=== PATIENT | male | born 1930 | race Caucasian/White ===

== ENCOUNTER → 2017-04-13 | Outpatient (CLI) | payer MEDICARE ==
--- NOTE | 2017-04-13 09:40 | CT ---
EXAMINATION TYPE: CT lumbar spine wo con DATE OF EXAM: 04/13/2017 9:10 AM COMPARISON: NONE HISTORY: Low back pain with radiculopathy of the right lower extremity for 8 months. Patient had a fa ll [address] DLP: 954 mGycm Automated exposure control for dose reduction was used. Unenhanced CT of the lumbar spine was performed. Bone and soft tissue window settings are submitted as well as coronal and sagittal reconstructions. FINDINGS: There is compression deformity of the L2 vertebral body of approximately 30%. Evaluation fo r retropulsion is slightly limited given patient positioning. The mid vertebral body demonstrates inc reased height loss in comparison to the anterior vertebral body. There is no extension into the poste rior elements. There is a slight levoscoliotic curvature of the lumbar spine with a rotatory component. Multilevel m oderate degenerative changes of the lumbar spine are noted is bridging anterior osteophytes, multilev el facet arthropathy, endplate sclerosis and Schmorl's nodes. Multilevel intervertebral disc space na rrowing is also seen. There is grade 1 anterolisthesis of L4 on L5. The remainder of the vertebral jess dies maintain alignment. Punctate left sacral sclerotic lesion likely represents a bone island. Minim al sacroiliac joint sclerosis is also seen. Abdominal aorta is of normal course and caliber intense visualized portions with moderate to severe c alcific atheromatous changes. There is a fluid attenuated poorly delineated right upper pole renal cy st. Paraspinal musculature is unremarkable. L1-L2: There is a broad-based disc bulge and mild facet arthropathy resulting in mild bilateral neura l foraminal narrowing. Spinal canal remains patent. L2-L3: There is a broad-based disc bulge, moderate facet arthropathy, and mild ligamentum flavum moss ling creating mild bilateral neural foraminal narrowing and mild spinal canal stenosis. L3-L4: There is a broad-based disc bulge, moderate facet arthropathy, and mild ligamentum flavum moss ling creating moderate bilateral neural foraminal narrowing and mild spinal canal stenosis. L4-L5: There is disc uncovering secondary to the grade 1 anterolisthesis of L4 with respect to L5 gra de additionally there is moderate to severe facet arthropathy, mild ligamentum flavum buckling and a broad-based disc bulge creating mild to moderate bilateral neural foraminal narrowing. No significant spinal canal stenosis. L5-S1: There is a broad-based disc bulge and moderate to severe facet arthropathy. Neural foramen and spinal canal are patent. IMPRESSION: 1. Age indeterminant compression deformity L2 vertebral body. Given the patient's history of chronic back pain, remote injury, and no provided history of recent trauma this is most likely chronic. MR co uld be performed to evaluate for bone marrow edema if there is corresponding point tenderness. 2. No discrete evidence of focal disc herniation although this is better assessed with MRI. 3. Multilevel degenerative disc disease, moderate in degree, resulting in variable degrees of neural foraminal stenosis as described above. This is most significant at L3-L4 where there is moderate bila teral neural foraminal narrowing. 4. Mild spinal canal stenosis at L2-L4. 5. Grade 1 anterolisthesis of L4 on L5.
== END | disposition home or self-care (01) ==
LOC: RADCTMAIN 08:51
PROVIDERS: ATTEND Physical Medicine & Rehabilitation
DX: M48.062 Spinal stenosis, lumbar region with neurogenic claudication (principal); M99.73 Connective tissue and disc stenosis of intervertebral foramina of lumbar region; M43.16 Spondylolisthesis, lumbar region; M51.36 Other intervertebral disc degeneration, lumbar region; Z95.0 Presence of cardiac pacemaker
CPT/HCPCS: 72131

== ENCOUNTER → 2018-03-22 | Outpatient (CLI) | payer MEDICARE ==
[2018-03-22 20:01] LABS: Anion Gap 7.3 mmol/L (4.00-12.00); Calcium 9.5 mg/dL (8.7-10.3); Carbon Dioxide 30.7 mmol/L (21.6-31.8); LDL Cholesterol,Calculated 62.6 mg/dL (0.0-131.0); Potassium 4.4 mmol/L (3.5-5.5); Total Bilirubin 0.3 mg/dL (0.3-1.2); VLDL Calculation 20.4 mg/dL (5.00-40.00)
== END | disposition home or self-care (01) ==
LOC: LABWHC1 12:24
PROVIDERS: ATTEND Internal Medicine Clinical Cardiac Electrophysiology
DX: I25.10 Atherosclerotic heart disease of native coronary artery without angina pectoris (principal); R00.1 Bradycardia, unspecified; Z95.1 Presence of aortocoronary bypass graft
CPT/HCPCS: 36415; 80053; 80061; 84443

== ENCOUNTER 2018-11-06 08:41 | Day surgery (SDC) | payer MEDICARE ==
[2018-11-04 16:27] VITALS: BMI 23.6
[~2018-11-06 08:41] MED LIST: LACTATED RINGERS 1,000 ML IV SCH; LIDOCAINE 1% 20 ML VIAL (10MG/ML) FOR IV START INTRADERMA PRN
[2018-11-06 09:20] VITALS: RESP 18; TEMP 96.8
[2018-11-06] MEDS ORDERED: LIDOCAINE 1% INJ 10MG/ML (20 ML MDV) ONE (09:47)
[2018-11-06] MEDS ORDERED: PROPOFOL 10 MG/ML 20 ML VIAL IV ONE (09:47)
--- NOTE | 2018-11-06 10:01 | P.PCN ---
Date of Procedure: 11/06/18 Procedure(s) Performed: BRIEF HISTORY: Patient is a 88-year-old, pleasant, male, scheduled for an upper endoscopy as a part of surveillance of Arnold's esophagus. He does have long- standing history of GERD/Arnold's esophagus and has been maintained on lansoprazole 30 mg daily and doing well. Last upper endoscopy was 2 years ago.. PROCEDURE PERFORMED: Esophagogastroduodenoscopy with biopsy. PREOPERATIVE DIAGNOSIS: GERD/Arnold's esophagus. IV sedation per anesthesia. PROCEDURE: After informed consent was obtained, the patient was brought into the endoscopy unit. IV sedation was administered by Anesthesia under continuous monitoring. Initially the Olympus GIF-140 video endoscope was inserted into the mouth. Esophagus intubated without any difficulty. It was gradually advanced into the stomach and duodenum and carefully examined. The bulb and the second part of the duodenum appeared normal. The scope at this time was withdrawn to the stomach, adequately insufflated with air, and upon careful examination, mucosa of the antrum, body, cardia and the fundus appeared normal. The scope was then withdrawn into the esophagus. The GE junction was located at 32 cm from the incisors. Moderate size hiatal hernia noted. They revealed linear tongues of Arnold's appearing mucosa extending from 29-32 cm from the incisors and biopsies were done from this area. The esophagus appeared normal. There were no erosions or ulcerations seen and the patient tolerated the procedure well. IMPRESSION: 1. Arnold's esophagus extending from 28-31 m from the incisors status post multiple biopsies. 2. Moderate size hiatal hernia. RECOMMENDATIONS: The findings of this examination were discussed with the patient as well as his family. He was advised to follow with the biopsy results. He will remain on lansoprazole 30 mg daily and follow antireflux measures..
[2018-11-06 11:10] VITALS: BP 158/74; PULSE 70
== END 2018-11-06 11:35 | disposition home or self-care (01) ==
LOC: ORWHC2ENDO 08:41
PROVIDERS: ATTEND Internal Medicine Gastroenterology
DX: K22.70 Barrett's esophagus without dysplasia (principal); K21.9 Gastro-esophageal reflux disease without esophagitis; K44.9 Diaphragmatic hernia without obstruction or gangrene; Z88.1 Allergy status to other antibiotic agents; Z88.8 Allergy status to other drugs, medicaments and biological substances; Z95.1 Presence of aortocoronary bypass graft; I25.10 Atherosclerotic heart disease of native coronary artery without angina pectoris; I10 Essential (primary) hypertension; E78.5 Hyperlipidemia, unspecified; Z95.0 Presence of cardiac pacemaker
CPT/HCPCS: 43239; J2001; J2704; 88305

== ENCOUNTER → 2019-05-31 | Outpatient (CLI) | payer MEDICARE ==
--- NOTE | 2019-05-31 16:45 | CT ---
EXAMINATION TYPE: CT brain wo con DATE OF EXAM: 05/31/2019 COMPARISON: None HISTORY: Unsteady gait CT DLP: 1147.[address] of the brain was performed. The ventricles, basal cisterns and sulci overlying the cerebral convexities demonstrate moderate enla rgement. There is no evidence for intracranial hemorrhage or sulcal effacement. There is decreased attenuation about the periventricular white matter and deep white matter of both c erebral hemispheres, compatible with chronic small vessel ischemia. Differential diagnosis does inclu de demyelination. No mass effects are seen.No midline shift. Osseous calvarium is intact. If symptoms persist consider MRI. IMPRESSION: 1. Age related atrophic and chronic small vessel ischemic change without acute intracranial process s een at this time.
--- NOTE | 2019-06-02 14:35 | CT ---
EXAMINATION TYPE: CT lumbar spine wo con DATE OF EXAM: 06/02/2019 COMPARISON: 04/13/2017 HISTORY: Collapsed vertebra CT DLP: 891.[address] of the lumbar spine was performed. Bone and soft tissue window settings are submitted as well as coronal and sagittal reconstructions. L1-L2: Again noted is remote compression fracture of L2 unchanged in overall morphology. Note that no evidence for interval progression. Moderate degenerative disc space narrowing at L1-2 with the poste rior disc bulge and mild effacement of the ventral thecal sac. Ventral spondylosis identified. L2-L3: There is grade 1 retrolisthesis of L2 on L3 measuring 3 mm. Mild degenerative disc space narro wing with posterior disc bulge and partial encapsulating spur resulting in disc endplate complex. Mil d effacement ventral thecal sac without central stenosis. No evidence for foraminal encroachment. L3-L4: Grade 1 retrolisthesis of L3 on L4 measuring 2 mm. Vacuum disc changes noted. Posterior disc b ulge with hypertrophy of the ligamentum flavum resulting in central stenosis and bilateral foraminal encroachment. L4-L5: Moderate degenerative disc space narrowing. 6 mm anterolisthesis L4 and L5 related to severe d egenerative change of the facet joints. There is moderate central stenosis at this level. L5-S1: Vacuum disc changes noted. Broad-based posterior disc bulge without herniation or central sten osis. Foramina are patent bilaterally. No paraspinal masses are identified. Lumbar segments are free if fracture. IMPRESSION: 1. Stable chronic compression deformity of L2. 2. Multilevel degenerative disc disease with varying degrees of spondylolisthesis. Central stenosis a s outlined above.
== END | disposition home or self-care (01) ==
LOC: RADCTMAIN 13:51
PROVIDERS: ATTEND Family Medicine
DX: G31.1 Senile degeneration of brain, not elsewhere classified (principal); I67.82 Cerebral ischemia; M48.061 Spinal stenosis, lumbar region without neurogenic claudication; M51.36 Other intervertebral disc degeneration, lumbar region; M43.16 Spondylolisthesis, lumbar region; M43.8X6 Other specified deforming dorsopathies, lumbar region
CPT/HCPCS: 70450; 72131

== ENCOUNTER → 2019-06-05 | Outpatient (CLI) | payer MEDICARE ==
--- NOTE | 2019-06-05 14:51 | US ---
EXAMINATION TYPE: US venous doppler duplex LE BI DATE OF EXAM: 06/05/2019 2:38 PM COMPARISON: NONE CLINICAL HISTORY: 88-year-old male M79.605 pain left leg. Right leg swelling and pain. On aspirin. No hx DVT. SIDE PERFORMED: Bilateral TECHNIQUE: The lower extremity deep venous system is examined utilizing real time linear array sonog jose rafael with graded compression, doppler sonography and color-flow sonography. FINDINGS: VESSELS IMAGED: External Iliac Vein (EIV) Common Femoral Vein Deep Femoral Vein Greater Saphenous Vein * Femoral Vein Popliteal Vein Small Saphenous Vein * Proximal Calf Veins (* superficial vessels) Right Leg: Appears negative for DVT. Limited visualization of femoral vein due to plaque shadowing and small vessel size. Left Leg: Negative for DVT IMPRESSION: 1. On the right, there is limited visualization of the femoral vein due to shadowing from plaque and diminutive vessel size. Otherwise, no DVT visualized on the right. 2. No evidence for DVT within the left lower extremity imaged from the groin to the upper calf.
[2019-06-05 16:35] LABS: C Reactive Protein <5.0 mg/L (<10.0)
[2019-06-06 01:08] LABS: Hemoglobin A1C 5.8 % (4.0-6.0)
== END | disposition home or self-care (01) ==
LOC: RADUSWWP 14:02
PROVIDERS: ATTEND Psychiatry & Neurology Neurology
DX: R93.6 Abnormal findings on diagnostic imaging of limbs (principal); M79.605 Pain in left leg; M79.604 Pain in right leg; G62.9 Polyneuropathy, unspecified; Z86.73 Personal history of transient ischemic attack (TIA), and cerebral infarction without residual deficits
CPT/HCPCS: 36415; 82306; 82607; 83036; 85652; 86140; 93970

== ENCOUNTER → 2019-09-23 | Outpatient (CLI) | payer MEDICARE ==
--- NOTE | 2019-09-23 15:04 | US ---
EXAMINATION TYPE: US venous doppler duplex LE RT DATE OF EXAM: 09/23/2019 2:50 PM COMPARISON: NONE CLINICAL HISTORY: R22.41 Swelling of lower Leg Right. SIDE PERFORMED: Right TECHNIQUE: The lower extremity deep venous system is examined utilizing real time linear array sonog jose rafael with graded compression, doppler sonography and color-flow sonography. VESSELS IMAGED: External Iliac Vein (EIV) Common Femoral Vein Deep Femoral Vein Greater Saphenous Vein * Femoral Vein Popliteal Vein Small Saphenous Vein * Proximal Calf Veins (* superficial vessels) Grayscale, color doppler, spectral doppler imaging performed of the deep veins of the right lower ext remity. There is normal flow, compressibility, vascular waveforms. Right Leg: Negative for DVT IMPRESSION: No sonographic evidence of deep venous thrombosis within the right lower extremity.
[2019-09-23 15:31] LABS: HCT 40.1 % (39.0-53.0); HGB 12.7 gm/dL (13.0-17.5); MCH 31.1 pg (25.0-35.0); MCHC 31.6 g/dL (31.0-37.0); MCV 98.5 fL (80.0-100.0); Platelet Count 218 k/uL (150-450); RBC 4.07 m/uL (4.30-5.90); WBC 8.1 k/uL (3.8-10.6)
--- NOTE | 2019-09-23 15:45 | XR ---
EXAMINATION TYPE: XR tibia fibula RT DATE OF EXAM: 09/23/2019 COMPARISON: NONE HISTORY: Pain and swelling TECHNIQUE: Two views are submitted. FINDINGS: The osseous structures are intact. The joint spaces are preserved. Soft tissue edema noted. Vascula r calcifications are seen. IMPRESSION: 1. No acute osseous abnormality.
[2019-09-23 16:03] LABS: Eosinophils # (M) 0.41 k/uL (0-0.7); Monocytes # (M) 0.81 k/uL (0-1.0); Neutrophils # (M) 5.59 k/uL (1.3-7.7); Neutrophils % (M) 69 %; Nucleated Red Blood Cells 0 /100 WBC (0-0); Total Cells Counted 100
[2019-09-23 16:53] LABS: Albumin 3.9 g/dL (3.5-5.0); Calcium 9.6 mg/dL (8.4-10.2); Potassium 4.6 mmol/L (3.5-5.1); Total Bilirubin 0.4 mg/dL (0.2-1.3); Total Protein 6.8 g/dL (6.3-8.2)
== END | disposition home or self-care (01) ==
LOC: RADUSWWP 14:19
PROVIDERS: ATTEND Family Medicine
DX: R22.41 Localized swelling, mass and lump, right lower limb (principal)
CPT/HCPCS: 36415; 80053; 85025

== ENCOUNTER 2019-10-04 15:33 | Inpatient (IN) | payer MEDICARE ==
[2019-10-04] MEDS ORDERED: ASPIRIN 81 MG PO STA (15:56)
--- NOTE | 2019-10-04 16:01 | ED ---
General Adult HPI - General Chief complaint: Chest Pain Stated complaint: Chest pain/SOB Time Seen by Provider: 10/04/19 15:47 Source: patient Mode of arrival: wheelchair Limitations: no limitations - History of Present Illness Initial comments: Dictation was produced using [employer] dictation software. please excuse any grammatical, word or spelling errors. This patient was cared for during a federal and state declared state of emergency secondary to Covid 19 Chief Complaint: 89-year-old male past medical history of triple bypass surgery, coronary artery disease presents with exertional chest pain or shortness of breath. History of Present Illness: Patient is a 9-year-old male he is accompanied by his family member. Patient has been having exertional shortness of breath has been getting worse for the last 2 weeks. 2 weeks ago patient was having exertional chest pain shortness of breath after walking. Today he does want to the bathroom when he felt chest pain and shortness of breath. He was supposed to follow-up on Sunday however considering the Q Mary symptoms he decided come to the emergency department. Patient denies any symptoms while at rest. He states that his chest pain is worse only with exertion. He says it feels like substernal chest pressure. Patient's CABG was from 1985. Patient has chronic right lower extremity swelling. He's been evaluated for DVT on multiple occasions since May of this year. He has had multiple negative anus ultrasound duplex scan of the right lower extremity. The ROS documented in this emergency department record has been reviewed and confirmed by me. Those systems with pertinent positive or negative responses have been documented in the HPI. All other systems are other negative and/or noncontributory. PHYSICAL EXAM: General Impression: Alert and oriented x3, not in acute distress HEENT: Normocephalic atraumatic, extra-ocular movements intact, pupils equal and reactive to light bilaterally, mucous membranes moist. Cardiovascular: Heart regular rate and rhythm Chest: Able to complete full sentences, no retractions, no tachypnea, mild crackles to the right lung base Abdomen: abdomen soft, non-tender, non-distended, no organomegaly Musculoskeletal: Pulses present and equal in all extremities, no peripheral edema Motor: no focal deficits noted Neurological: CN II-XII grossly intact, no focal motor or sensory deficits noted Skin: Intact with no visualized rashes Psych: Normal affect and mood ED course: 89-year-old male presents with exertional chest pain shortness of breath. Signs upon arrival are within acceptable limits. Patient's well- appearing at bedside. EKG does not show any signs of ischemia or infarction. Patient's history of present illness is concerning for unstable angina.Laboratory evaluation obtained. CBC unremarkable. Coag panel is negative. Metabolic panel shows elevated BUN. Troponin is elevated at 0.047. Chest x-ray shows no acute processes. Considering elevated troponin and history of present illness there is concern that patient's clinical presentation is consistent with unstable angina. Patient started on heparin. He was given 324 of aspirin. Upon reevaluation patient is pain-free. Patient be admitted for serial troponins, cardiology consultation. EKG interpretation: Ventricular rate 71, sinus rhythm,. Interval to 20, QRS 78, QTC 419. No [place] prolongation, no QTC prolongation, no ST or T-wave changes noted. No old EKG for comparison. Overall, this EKG is unremarkable - Related Data Home Medications Medication Instructions Recorded Confirmed Atorvastatin [Lipitor] 20 mg PO HS 03/03/14 11/04/18 Lansoprazole [Prevacid] 30 mg PO DAILY 03/03/14 11/04/18 [place]-3 Acid Ethyl Esters [Lovaza] 1 gm PO BID 03/03/14 11/04/18 Valsartan/Hydrochlorothiazide 1 tab PO DAILY 03/03/14 11/04/18 [Valsartan-Hctz 80-12.5 mg Tab] Calcium Polycarbophil [Fibercon] 625 mg PO DAILY 03/05/14 11/04/18 Garlic 1,500 mg PO DAILY 03/05/14 11/04/18 Multivitamin [Men's Multi-Vitamin] 1 each PO DAILY 03/05/14 11/04/18 Aspirin 81 mg PO DAILY 10/28/14 11/04/18 Naproxen [Naprosyn] 500 mg PO Q12HR PRN 11/04/18 11/04/18 Allergies Allergy/AdvReac Type Severity Reaction Status Date / Time meperidine HCl [From Demerol] Allergy Severe Nausea Verified 10/04/19 15:42 neomycin [Neomycin] Allergy Rash/Hives Verified 10/04/19 15:42 amoxicillin [Amoxicillin] AdvReac Severe Nausea Verified 10/04/19 15:42 ,ABDOMINAL PAIN clarithromycin [From Biaxin] AdvReac Severe Nausea Verified 10/04/19 15:42 Review of Systems ROS Statement: Those systems with pertinent positive or pertinent negative responses have been documented in the HPI. ROS Other: All systems not noted in ROS Statement are negative. Past Medical History Past Medical History: GERD/Reflux, Hyperlipidemia, Hypertension Additional Past Medical History / Comment(s): hx. Arnold's esophagus History of Any Multi-Drug Resistant Organisms: None Reported Past Surgical History: Coronary Bypass/CABG, Heart Catheterization, Hernia Repair, Pacemaker Additional Past Surgical History / Comment(s): CABG-triple bypass 30 yrs. ago Past Anesthesia/Blood Transfusion Reactions: No Reported Reaction Type of Cardiac Device: Permanent Pacemaker Device Placement Date:: 2014 Past Psychological History: No Psychological Hx Reported Smoking Status: Never smoker Past Alcohol Use History: None Reported Past Drug Use History: None Reported - Past Family History Mother Family Medical History: No Reported History General Exam Limitations: no limitations Course Vital Signs 10/04/19 15:42 Temperature 98.6 F Pulse Rate 68 Respiratory 18 Rate Blood Pressure 122/59 O2 Sat by Pulse 95 Oximetry Medical Decision Making - Lab Data Result diagrams: 10/04/19 16:11 10/04/19 16:11 Lab Results 10/04/19 10/04/19 10/04/19 Range/Units 16:11 16:11 16:11 WBC 8.1 (3.8-10.6) k/uL RBC 3.97 L (4.30-5.90) m/uL Hgb 12.9 L (13.0-17.5) gm/dL Hct 38.8 L (39.0-53.0) % MCV 97.6 (80.0-100.0) fL MCH 32.5 (25.0-35.0) pg MCHC 33.3 (31.0-37.0) g/dL RDW 12.9 (11.5-15.5) % Plt Count 225 (150-450) k/uL Neutrophils % 56 % Lymphocytes % 19 % Monocytes % 13 % Eosinophils % 7 % Basophils % 1 % Neutrophils # 4.5 (1.3-7.7) k/uL Lymphocytes # 1.6 (1.0-4.8) k/uL Monocytes # 1.1 H (0-1.0) k/uL Eosinophils # 0.6 (0-0.7) k/uL Basophils # 0.1 (0-0.2) k/uL PT 10.7 (9.0-12.0) sec INR 1.0 (<1.2) APTT 22.3 (22.0-30.0) sec Sodium 133 L (137-145) mmol/L Potassium 5.2 H (3.5-5.1) mmol/L Chloride 100 (98-107) mmol/L Carbon Dioxide 25 (22-30) mmol/L Anion Gap 8 mmol/L BUN 29 H (9-20) mg/dL Creatinine 1.02 (0.66-1.25) mg/dL Est GFR (CKD-EPI)AfAm 75 (>60 ml/min/1.73 sqM) Est GFR (CKD-EPI)NonAf 65 (>60 ml/min/1.73 sqM) Glucose 118 H (74-99) mg/dL Calcium 9.3 (8.4-10.2) mg/dL Magnesium 1.7 (1.6-2.3) mg/dL Total Bilirubin 0.5 (0.2-1.3) mg/dL AST 42 (17-59) U/L ALT 26 (4-49) U/L Alkaline Phosphatase 73 (38-126) U/L Troponin I (0.000-0.034) ng/mL NT-Pro-B Natriuret Pep pg/mL Total Protein 6.8 (6.3-8.2) g/dL Albumin 3.7 (3.5-5.0) g/dL 10/04/19 10/04/19 Range/Units 16:11 16:11 WBC (3.8-10.6) k/uL RBC (4.30-5.90) m/uL Hgb (13.0-17.5) gm/dL Hct (39.0-53.0) % MCV (80.0-100.0) fL MCH (25.0-35.0) pg MCHC (31.0-37.0) g/dL RDW (11.5-15.5) % Plt Count (150-450) k/uL Neutrophils % % Lymphocytes % % Monocytes % % Eosinophils % % Basophils % % Neutrophils # (1.3-7.7) k/uL Lymphocytes # (1.0-4.8) k/uL Monocytes # (0-1.0) k/uL Eosinophils # (0-0.7) k/uL Basophils # (0-0.2) k/uL PT (9.0-12.0) sec INR (<1.2) APTT (22.0-30.0) sec Sodium (137-145) mmol/L Potassium (3.5-5.1) mmol/L Chloride (98-107) mmol/L Carbon Dioxide (22-30) mmol/L Anion Gap mmol/L BUN (9-20) mg/dL Creatinine (0.66-1.25) mg/dL Est GFR (CKD-EPI)AfAm (>60 ml/min/1.73 sqM) Est GFR (CKD-EPI)NonAf (>60 ml/min/1.73 sqM) Glucose (74-99) mg/dL Calcium (8.4-10.2) mg/dL Magnesium (1.6-2.3) mg/dL Total Bilirubin (0.2-1.3) mg/dL AST (17-59) U/L ALT (4-49) U/L Alkaline Phosphatase (38-126) U/L Troponin I 0.047 H* (0.000-0.034) ng/mL NT-Pro-B Natriuret Pep 461 pg/mL Total Protein (6.3-8.2) g/dL Albumin (3.5-5.0) g/dL Critical Care Time Critical Care Time: Yes Total Critical Care Time: 33 Disposition Clinical Impression: NSTEMI (non-ST elevated myocardial infarction) Disposition: ADMITTED IP TO THIS HOSP Condition: Fair Referrals: Misael Foster DO [Primary Care Provider] - 1-2 days Decision Time: 17:28
--- NOTE | 2019-10-04 16:31 | XR ---
EXAMINATION TYPE: XR chest 2V DATE OF EXAM: 10/04/2019 COMPARISON: 11/05/2014 HISTORY: 89-year-old male with chest pain TECHNIQUE: PA and lateral views FINDINGS: The heart is normal size. Aorta only vasculature within normal limits. Stable calcified granuloma at the left hilum. Mild interstitial prominence is unchanged. No consolidation or pleural effusion. Left anterior chest wall pacemaker generator with right atrial and right ventricular leads. Median sterno van wires and post-CABG clips. IMPRESSION: Post-CABG changes. Left-sided pacemaker generator. Chronic appearing parenchymal changes as well as o ld granulomatous disease. No definite acute process.
[2019-10-04 16:33] LABS: Partial Thromboplastin Time 22.3 sec (22.0-30.0); Prothrombin Time 10.7 sec (9.0-12.0)
[2019-10-04 16:34] LABS: Albumin 3.7 g/dL (3.5-5.0); Calcium 9.3 mg/dL (8.4-10.2); Magnesium 1.7 mg/dL (1.6-2.3); Total Bilirubin 0.5 mg/dL (0.2-1.3); Total Protein 6.8 g/dL (6.3-8.2)
[2019-10-04 16:46] LABS: Potassium 5.2 mmol/L (3.5-5.1)
[2019-10-04 16:48] LABS: Basophils # (A) 0.1 k/uL (0-0.2); Basophils % (A) 1 %; Eosinophils # (A) 0.6 k/uL (0-0.7); Eosinophils % (A) 7 %; HCT 38.8 % (39.0-53.0); HGB 12.9 gm/dL (13.0-17.5); Lymphocytes # (A) 1.6 k/uL (1.0-4.8); Lymphocytes % (A) 19 %; MCH 32.5 pg (25.0-35.0); MCHC 33.3 g/dL (31.0-37.0); MCV 97.6 fL (80.0-100.0); Monocytes # (A) 1.1 k/uL (0-1.0); Monocytes % (A) 13 %; Neutrophils # (A) 4.5 k/uL (1.3-7.7); Neutrophils % (A) 56 %; Platelet Count 225 k/uL (150-450); RBC 3.97 m/uL (4.30-5.90); RDW 12.9 % (11.5-15.5); WBC 8.1 k/uL (3.8-10.6)
[2019-10-04] MEDS ORDERED: HEPARIN SODIUM,PORCINE 5,000 UNIT/ML 1 ML VIAL IV ONE (17:26)
[2019-10-04] MEDS ORDERED: HEPARIN SODIUM,PORCINE 5,000 UNIT/ML 1 ML VIAL IV PRN (17:26)
[2019-10-04] MEDS ORDERED: NITROGLYCERIN SL TABS 0.4 MG TAB SUBLINGUAL PRN (17:28)
[2019-10-04] MEDS: HEPARIN SOD,PORK IN 0.45% NACL 25,000 UNIT in 0.45% NACL 1 250ML.BAG IV SCH (18:07)
[2019-10-04] MEDS ORDERED: HYDROcodone/APAP 5-325MG 1 EACH TAB PO PRN (20:55)
[2019-10-05 06:29] LABS: Cholesterol 100 mg/dL (<200); HDL Cholesterol 40 mg/dL (40-60); LDL Cholesterol,Calculated 49 mg/dL (0-99); Triglycerides 55 mg/dL (<150)
--- NOTE | 2019-10-05 08:01 | P.CRDCN ---
History of Present Illness Consult date: 10/05/19 Consult reason: non-Q-wave [place] Chief complaint: exertional chest pain History of present illness: History of present illness: This is an 89-year-old male patient of Dr. Fernandez in with past medical history of coronary artery disease status post three-vessel CABG in 1985 at [facility], pacemaker placement in 2014, hypertension, hyperlipidemia, gastroesophageal reflux disease, Arnold's esophagus. Patient states that he has had exertional chest pain shortness of breath isn't going on for a couple weeks. It is an aching type with shortness of breath. He has a faint feeling in bilateral arms. He states he is really walks around the block and developed achiness and when he gets home and takes about 5 minutes for this to resolve. He does not have any nitroglycerin at home to take. He had set up an appointment Dr. Fernandez in for October 09 and was trying to wait until that date. Family is currently in town due to his birthday and for Father's Day and they have requested him come into the hospital for further evaluation. Patient is also had right lower extremity edema and negative for DVT on ultrasounds obtained in May and early September as outpatient. Hemoglobin 12.9, WBC normal. Sodium 133, potassium 5.2, chloride 100, CO2 25, BUN 29, creatinine 1.02, blood sugar 118. Troponins then 0.047, 0.070, 0.074. Triglycerides 55, cholesterol 100, LDL 49, HDL 40. EKG is a sinus rhythm with a first-degree block with PACs, no acute ST changes. 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 No acute process. The patient was started on heparin drip. Discussed option with patient of undergoing heart catheterization or medical management. At this time patient is agreeable to ride a medical management, increase activity and reassess tomorrow for possible heart catheterization. Review Of Systems: Constitutional: No fever, no chills. No weakness, fatigue or lethargy. EENT: No headache. No blurred vision or double vision, no loss of vision. No dizziness. Lungs: No shortness of breath, cough, no sputum production. No wheezing. Cardiovascular: Reports chest pain, right lower extremity edema. No palpitations. No paroxysmal nocturnal dyspnea. No orthopnea. No lightheadedness or dizziness. No syncopal episodes. Reports extensional shortness of breath. Abdominal: No abdominal pain. No nausea, vomiting. No diarrhea. No constipation. No bloody or tarry stools. No loss of appetite. Genitourinary: No dysuria, increased frequency, urgency. No urinary retention. Musculoskeletal: No myalgias. No muscle weakness, no gait dysfunction, no frequent falls. Integumentary: No wounds, no lesions. No rash or pruritus. Neurologic: No aphasia. No facial droop. No change in mentation. No head injury. No headache. No paralysis. No paresthesia. Psychiatric: No depression. No anxiety. No mood swings. Endocrine: 1 elevated blood sugar. Physical examination: Gen: This is an 89-year-old male. Patient is sitting up in bed eating breakfast and appears to be in no acute distress. VS: Blood pressure 105/50, heart rate in the 50s, pulse ox 99% on 2 L nasal cannula, afebrile HEENT: Head is atraumatic, normocephalic. Pupils equal, round. Sclerae is ani cteric. NECK: Supple. No JVD. No lymphadenopathy. No thyromegaly. LUNGS: Clear to auscultation. No wheezes or rhonchi. No intercostal retractions. HEART: Regular rate and rhythm. No murmur. ABDOMEN: Soft. Bowel sounds are present. No masses. No tenderness. EXTREMITIES: No pedal edema. No calf tenderness. NEUROLOGICAL: Patient is awake, alert and oriented x3. Cranial nerves 2 through 12 are grossly intact. 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 Hypertension Hyperlipidemia Gastroesophageal reflux disease and Arnold's esophagus Plan: Resume Toprol-XL 25 mg at supper Resume Lipitor 20 mg daily, continue aspirin 325 mg daily Continue heparin drip Add Imdur 15 mg daily, hold hydrochlorothiazide Obtain 2-D echocardiogram and Doppler study to assess cardiac structure and function Increase activity and monitor chest pain Possible heart catheterization depending on patient's symptoms Further recommendations to follow based upon clinical course Thank you kindly for this consultation Nurse practitioner note has been reviewed, I agree with documented findings and plan of care. Patient was seen and examined. Past Medical History Past Medical History: GERD/Reflux, Hyperlipidemia, Hypertension Additional Past Medical History / Comment(s): hx. Arnold's esophagus History of Any Multi-Drug Resistant Organisms: None Reported Past Surgical History: Coronary Bypass/CABG, Heart Catheterization, Hernia Repair, Pacemaker Additional Past Surgical History / Comment(s): CABG-triple bypass 30 yrs. ago Past Anesthesia/Blood Transfusion Reactions: No Reported Reaction Type of Cardiac Device: Permanent Pacemaker Device Placement Date:: 2014 Past Psychological History: No Psychological Hx Reported Smoking Status: Never smoker Past Alcohol Use History: None Reported Past Drug Use History: None Reported - Past Family History Mother Family Medical History: No Reported History Medications and Allergies Home Medications Medication Instructions Recorded Confirmed Type Atorvastatin [Lipitor] 20 mg PO W/SUPPER 03/03/14 10/04/19 History Lansoprazole [Prevacid] 30 mg PO W/BRKFST 03/03/14 10/04/19 History [place]-3 Acid Ethyl Esters [Lovaza] 1 gm PO BID-W/MEALS 03/03/14 10/04/19 History Valsartan/Hydrochlorothiazide 1 tab PO W/BRKFST 03/03/14 10/04/19 History [Valsartan-Hctz 80-12.5 mg Tab] Calcium Polycarbophil [Fibercon] 625 mg PO W/BRKFST 03/05/14 10/04/19 History Garlic 1,500 mg PO W/BRKFST 03/05/14 10/04/19 History Multivitamin [Men's Multi-Vitamin] 1 tab PO W/BRKFST 03/05/14 10/04/19 History Naproxen [Naprosyn] 500 mg PO BID-W/MEALS PRN 11/04/18 10/04/19 History Aspirin 325 mg PO W/BRKFST 10/04/19 10/04/19 History Cholecalciferol [Vitamin D3 (25 2,000 unit PO W/SUPPER 10/04/19 10/04/19 History Mcg = 1000 Iu)] Metoprolol Succinate [Toprol XL] 25 mg PO W/SUPPER 10/04/19 10/04/19 History Allergies Allergy/AdvReac Type Severity Reaction Status Date / Time meperidine HCl [From Demerol] Allergy Severe Nausea Verified 10/04/19 21:01 neomycin [Neomycin] Allergy Rash/Hives Verified 10/04/19 21:01 amoxicillin [Amoxicillin] AdvReac Severe Nausea Verified 10/04/19 21:01 ,ABDOMINAL PAIN clarithromycin [From Biaxin] AdvReac Severe Nausea Verified 10/04/19 21:01 Physical Exam Vitals: Vital Signs Temp Pulse Pulse Resp BP BP Pulse Ox 10/05/19 04:00 97.5 F L 51 L 18 105/50 99 10/05/19 00:00 97.7 F 53 L 17 103/61 98 10/04/19 20:00 97.8 F 58 L 17 140/77 100 10/04/19 18:38 69 18 137/71 98 10/04/19 17:56 97.8 F 58 L 17 140/77 100 10/04/19 17:45 69 18 137/71 98 10/04/19 16:45 18 10/04/19 15:45 18 10/04/19 15:42 98.6 F 68 18 122/59 95 Intake and Output 10/04/19 10/05/19 10/05/19 22:59 06:59 14:59 Intake Total 69.886 Output Total 425 Balance -355.114 Intake: Intake, IV Titration 69.886 Amount Heparin Sod,Pork in 0.45% 69.886 NaCl 25,000 unit In 0.45 % NaCl 1 250ml.bag @ 12 UNITS/KG/HR 8.437 mls/hr IV .Q24H [facility] Rx#: [id number] Output: Urine 425 Other: Weight 70.307 kg 71.5 kg Results 10/04/19 16:11 10/04/19 16:11 Cardiac Enzymes 10/04/19 10/04/19 10/04/19 Range/Units 16:11 16:11 22:12 AST 42 (17-59) U/L Troponin I 0.047 H* 0.070 H* (0.000-0.034) ng/mL 10/05/19 Range/Units 05:44 AST (17-59) U/L Troponin I 0.074 H* (0.000-0.034) ng/mL Coagulation 10/04/19 10/05/19 Range/Units 16:11 01:49 PT 10.7 (9.0-12.0) sec APTT 22.3 66.2 H (22.0-30.0) sec Lipids 10/05/19 Range/Units 05:44 Triglycerides 55 (<150) mg/dL Cholesterol 100 (<200) mg/dL HDL Cholesterol 40 (40-60) mg/dL CBC 10/04/19 Range/Units 16:11 WBC 8.1 (3.8-10.6) k/uL RBC 3.97 L (4.30-5.90) m/uL Hgb 12.9 L (13.0-17.5) gm/dL Hct 38.8 L (39.0-53.0) % Plt Count 225 (150-450) k/uL Comprehensive Metabolic Panel 10/04/19 Range/Units 16:11 Sodium 133 L (137-145) mmol/L Potassium 5.2 H (3.5-5.1) mmol/L Chloride 100 (98-107) mmol/L Carbon Dioxide 25 (22-30) mmol/L BUN 29 H (9-20) mg/dL Creatinine 1.02 (0.66-1.25) mg/dL Glucose 118 H (74-99) mg/dL Calcium 9.3 (8.4-10.2) mg/dL AST 42 (17-59) U/L ALT 26 (4-49) U/L Alkaline Phosphatase 73 (38-126) U/L Total Protein 6.8 (6.3-8.2) g/dL Albumin 3.7 (3.5-5.0) g/dL Current Medications Generic Name Dose Route Start Last Admin Trade Name Freq PRN Reason Stop Dose Admin Hydrocodone Bitart/Acetaminophen 1 each 10/04/19 20:55 10/04/19 21:21 [place] 5-325 PO 1 each Q6HR PRN Administration Moderate Pain Aspirin 325 mg 10/05/19 09:00 Aspirin PO DAILY MOMO Heparin Sodium (Porcine) 0 unit 10/04/19 17:26 Heparin IV PER PROTOCOL PRN Low PTT Protocol Heparin Sodium/Sodium Chloride 250 mls @ 8.437 mls/hr 10/04/19 17:30 10/05/19 02:24 25,000 unit/ Sodium Chloride IV 10 units/kg/hr .Q24H MOMO 7.031 mls/hr Titration Protocol 12 UNITS/KG/HR Nitroglycerin 0.4 mg 10/04/19 17:28 Nitrostat SUBLINGUAL Q5M PRN Chest Pain Intake and Output 10/04/19 10/05/19 10/05/19 22:59 06:59 14:59 Intake Total 69.886 Output Total 425 Balance -355.114 Intake: Intake, IV Titration 69.886 Amount Heparin Sod,Pork in 0.45% 69.886 NaCl 25,000 unit In 0.45 % NaCl 1 250ml.bag @ 12 UNITS/KG/HR 8.437 mls/hr IV .Q24H [facility] Rx#: [id number] Output: Urine 425 Other: Weight 70.307 kg 71.5 kg 10/04/19 16:11 10/04/19 16:11
[2019-10-05] MEDS ORDERED: HYDROCHLOROTHIAZIDE 12.5 MG CAP PO ONE (08:31)
[2019-10-05] MEDS ORDERED: VALSARTAN 80 MG TAB PO ONE (08:32)
[2019-10-05] MEDS: ASPIRIN 325 MG TAB PO SCH (08:51)
[2019-10-05] MEDS: ISOSORBIDE MONONITRATE ER 15 MG TAB PO SCH (10:44)
--- NOTE | 2019-10-05 16:44 | P.HPIM ---
History of Present Illness H&P Date: 10/05/19 Chief Complaint: chest discomfort patient is a 89-year-old male with a known history of coronary artery disease status post CABG in 1985, hypertension, hyperlipidemia, GERD/Arnold's esophagus, history of pacemaker placement came to ER with complaints of progressively worsening shortness of breath and chest discomfort for the past 2 weeks. Patient says that 2 weeks ago she was walking around the block and felt like Substernalchest discomfort and shortness of breath. 2 days ago he was unable to walk to the hallway. Denied any radiation to the arm. Patient felt like aching pain in the both shoulders. Patient call his son who is a physician and was recommended to go to emergency room.denied any nausea or vomiting. No diaphoresis. No worsening leg swelling. No fever no chills. No cough or sputum production. Patient follows with Dr. Ye as an outpatient. chest x-ray showed sinus rhythm with first-degree AV block. Chest x-ray showed chronic parenchymal changes. Old granulomatous disease. No acute process. Laboratory datashowed sodium 133, potassium 5.2, chloride 100 bicarb is 25 and BNP 29 and creatinine 1.0 to troponin level 0.047, 0.070, 0.074 LDL is 49 Review of Systems Constitutional: Patient denies any fever or chills . No generalized weakness or weight loss. Abdomen: Patient denied nausea vomiting and diarrhea and abdominal pain. Cardiovascular: Patient denies any chest pain or short of breath no palpitations.chest discomfort and exertional dyspnea. Respiratory: patient denied any cough is from production. No shortness of breath Neurologic: Patient denied any numbness or tingling headache. Musculoskeletal: Patient denies any complaints of joint swelling or deformity. Skin: Negative Psychiatric: Negative Endocrine: No heat or cold intolerance. No recent weight gain. Genitourinary: No dysuria or hematuria. All other 14 point ROS negative except the above Past Medical History Past Medical History: GERD/Reflux, Hyperlipidemia, Hypertension Additional Past Medical History / Comment(s): hx. Arnold's esophagus History of Any Multi-Drug Resistant Organisms: None Reported Past Surgical History: Coronary Bypass/CABG, Heart Catheterization, Hernia R epair, Pacemaker Additional Past Surgical History / Comment(s): CABG-triple bypass 30 yrs. ago Past Anesthesia/Blood Transfusion Reactions: No Reported Reaction Type of Cardiac Device: Permanent Pacemaker Device Placement Date:: 2014 Past Psychological History: No Psychological Hx Reported Smoking Status: Never smoker Past Alcohol Use History: None Reported Past Drug Use History: None Reported - Past Family History Mother Family Medical History: No Reported History Medications and Allergies Home Medications Medication Instructions Recorded Confirmed Type Atorvastatin [Lipitor] 20 mg PO W/SUPPER 03/03/14 10/04/19 History Lansoprazole [Prevacid] 30 mg PO W/BRKFST 03/03/14 10/04/19 History [place]-3 Acid Ethyl Esters [Lovaza] 1 gm PO BID-W/MEALS 03/03/14 10/04/19 History Valsartan/Hydrochlorothiazide 1 tab PO W/BRKFST 03/03/14 10/04/19 History [Valsartan-Hctz 80-12.5 mg Tab] Calcium Polycarbophil [Fibercon] 625 mg PO W/BRKFST 03/05/14 10/04/19 History Garlic 1,500 mg PO W/BRKFST 03/05/14 10/04/19 History Multivitamin [Men's Multi-Vitamin] 1 tab PO W/BRKFST 03/05/14 10/04/19 History Naproxen [Naprosyn] 500 mg PO BID-W/MEALS PRN 11/04/18 10/04/19 History Aspirin 325 mg PO W/BRKFST 10/04/19 10/04/19 History Cholecalciferol [Vitamin D3 (25 2,000 unit PO W/SUPPER 10/04/19 10/04/19 History Mcg = 1000 Iu)] Metoprolol Succinate [Toprol XL] 25 mg PO W/SUPPER 10/04/19 10/04/19 History Allergies Allergy/AdvReac Type Severity Reaction Status Date / Time meperidine HCl [From Demerol] Allergy Severe Nausea Verified 10/04/19 21:01 neomycin [Neomycin] Allergy Rash/Hives Verified 10/04/19 21:01 amoxicillin [Amoxicillin] AdvReac Severe Nausea Verified 10/04/19 21:01 ,ABDOMINAL PAIN clarithromycin [From Biaxin] AdvReac Severe Nausea Verified 10/04/19 21:01 Physical Exam Vitals: Vital Signs Temp Pulse Pulse Resp BP BP Pulse Ox 10/05/19 11:43 56 L 18 10/05/19 08:00 97.9 F 56 L 18 138/63 98 10/05/19 04:00 97.5 F L 51 L 18 105/50 99 10/05/19 00:00 97.7 F 53 L 17 103/61 98 10/04/19 20:00 97.8 F 58 L 17 140/77 100 10/04/19 18:38 69 18 137/71 98 10/04/19 17:56 97.8 F 58 L 17 140/77 100 10/04/19 17:45 69 18 137/71 98 10/04/19 16:45 18 10/04/19 15:45 18 10/04/19 15:42 98.6 F 68 18 122/59 95 Intake and Output 10/04/19 10/05/19 10/05/19 22:59 06:59 14:59 Intake Total 69.886 Output Total 425 250 Balance -355.114 -250 Intake: Intake, IV Titration 69.886 Amount Heparin Sod,Pork in 0.45% 69.886 NaCl 25,000 unit In 0.45 % NaCl 1 250ml.bag @ 12 UNITS/KG/HR 8.437 mls/hr IV .Q24H [facility] Rx#: [id number] Output: Urine 425 250 Other: Weight 70.307 kg 71.5 kg PHYSICAL EXAMINATION: Patient is lying in the bed comfortably, no acute distress, awake alert and oriented.. HEENT: Normocephalic. Neck is supple. Pupils reactive. Nostrils clear. Oral cavity is moist. Ears reveal no drainage. Neck reveals no JVD, carotid bruits, or thyromegaly. CHEST EXAMINATION: Trachea is central. Symmetrical expansion. Lung orourke clear to auscultation and percussion. CARDIAC: Normal S1, S2 with no gallops. No murmurs ABDOMEN: Soft. Bowel sounds normal. No organomegaly. No abdominal bruits. Extremities: reveal no edema. No clubbing or cyanosis Neurologically awake, alert, oriented x3 with well-coordinated movements. No focal deficits noted Skin: No rash or skin lesions. Psychiatric: Coperative. Nonsuicidal Musculoskeletal: No joint swelling or deformity. Normal range of motion. Results CBC & Chem 7: 10/04/19 16:11 10/04/19 16:11 Labs: Abnormal Lab Results - Last 24 Hours (Table) 10/04/19 10/04/19 10/04/19 Range/Units 16:11 16:11 16:11 RBC 3.97 L (4.30-5.90) m/uL Hgb 12.9 L (13.0-17.5) gm/dL Hct 38.8 L (39.0-53.0) % Monocytes # 1.1 H (0-1.0) k/uL APTT (22.0-30.0) sec Sodium 133 L (137-145) mmol/L Potassium 5.2 H (3.5-5.1) mmol/L BUN 29 H (9-20) mg/dL Glucose 118 H (74-99) mg/dL Troponin I 0.047 H* (0.000-0.034) ng/mL 10/04/19 10/05/19 10/05/19 Range/Units 22:12 01:49 05:44 RBC (4.30-5.90) m/uL Hgb (13.0-17.5) gm/dL Hct (39.0-53.0) % Monocytes # (0-1.0) k/uL APTT 66.2 H (22.0-30.0) sec Sodium (137-145) mmol/L Potassium (3.5-5.1) mmol/L BUN (9-20) mg/dL Glucose (74-99) mg/dL Troponin I 0.070 H* 0.074 H* (0.000-0.034) ng/mL 10/05/19 Range/Units 08:53 RBC (4.30-5.90) m/uL Hgb (13.0-17.5) gm/dL Hct (39.0-53.0) % Monocytes # (0-1.0) k/uL APTT 50.5 H (22.0-30.0) sec Sodium (137-145) mmol/L Potassium (3.5-5.1) mmol/L BUN (9-20) mg/dL Glucose (74-99) mg/dL Troponin I (0.000-0.034) ng/mL Thrombosis Risk Factor Assmnt - DVT/VTE Prophylaxis DVT/VTE Prophylaxis: Pharmacologic Prophylaxis ordered Assessment and Plan Assessment: exertional chest discomfort and elevated troponin level due to non-ST elevated [place] coronary artery disease with history of CABG in 1985 History of AV block status post permanent pacemaker placement Hypertension Hyperlipidemia GERD Arnold's esophagus DVT prophylaxis patient currently on heparin drip Plan: Patient will be continued on telemetry monitoring. Continue withaspirin, statins and Toprol-XL 20 mg daily. Imdur was added by cardiology. 2-D echocardiogram was ordered. Cardiology is planning for catheterization if the patient is still symptomatic. Further recommendations based on theclinical course. Discussed with patient in detail. Time with Patient: Greater than 30
[2019-10-05] MEDS: HEPARIN SOD,PORK IN 0.45% NACL 25,000 UNIT in 0.45% NACL 1 250ML.BAG IV SCH (17:08)
[2019-10-05] MEDS: METOPROLOL SUCCINATE (ER) 25 MG TAB.ER.24H PO SCH (17:12)
[2019-10-05] MEDS: ATORVASTATIN 20 MG TAB PO SCH (17:12)
[2019-10-06 06:06] LABS: HCT 38.9 % (39.0-53.0); HGB 12.8 gm/dL (13.0-17.5); MCH 32.5 pg (25.0-35.0); MCHC 32.9 g/dL (31.0-37.0); Mean Platelet Volume 6.9; Platelet Count 245 k/uL (150-450); RBC 3.93 m/uL (4.30-5.90); WBC 8.6 k/uL (3.8-10.6)
[2019-10-06 06:17] LABS: Calcium 9.2 mg/dL (8.4-10.2); Potassium 4.8 mmol/L (3.5-5.1)
[2019-10-06] MEDS: VALSARTAN 80 MG TAB PO SCH (06:28)
[2019-10-06 06:53] LABS: Basophils # (M) 0.17 k/uL (0-0.2); Lymphocytes # (M) 1.63 k/uL (1.0-4.8); Monocytes # (M) 1.46 k/uL (0-1.0); Neutrophils # (M) 4.13 k/uL (1.3-7.7); Neutrophils % (M) 48 %; Nucleated Red Blood Cells 0 /100 WBC (0-0); Total Cells Counted 100
[2019-10-06] MEDS ORDERED: HYDROCHLOROTHIAZIDE 12.5 MG CAP PO SCH (07:30)
[2019-10-06] MEDS ORDERED: HYDROCHLOROTHIAZIDE PO SCH (07:30)
[2019-10-06] MEDS ORDERED: [UNRECOGNIZED DRUG - OTHER] PO SCH (07:30)
[2019-10-06] MEDS ORDERED: VALSARTAN PO SCH (07:30)
[2019-10-06] MEDS: ASPIRIN 325 MG TAB PO SCH (08:20)
[2019-10-06] MEDS: ISOSORBIDE MONONITRATE ER 15 MG TAB PO SCH (08:20)
--- NOTE | 2019-10-06 10:28 | P.PN ---
Subjective patient is a 89-year-old male with a known history of coronary artery disease status post CABG in 1985, hypertension, hyperlipidemia, GERD/Arnold's esophagus, history of pacemaker placement came to ER with complaints of progressively worsening shortness of breath and chest discomfort for the past 2 weeks. Patient says that 2 weeks ago she was walking around the block and felt like Substernalchest discomfort and shortness of breath. 2 days ago he was unable to walk to the hallway. Denied any radiation to the arm. Patient felt like aching pain in the both shoulders. Patient call his son who is a physician and was recommended to go to emergency room.denied any nausea or vomiting. No diaphoresis. No worsening leg swelling. No fever no chills. No cough or sputum production. Patient follows with Dr. Ye as an outpatient. chest x-ray showed sinus rhythm with first-degree AV block. Chest x-ray showed chronic parenchymal changes. Old granulomatous disease. No acute process. Laboratory datashowed sodium 133, potassium 5.2, chloride 100 bicarb is 25 and BNP 29 and creatinine 1.0 to troponin level 0.047, 0.070, 0.074 LDL is 49 Subjective 10/06/2019 This is a pleasant 69 years old male who presents with signs symptoms of non- STEMI, was treated with heparin drip as well as aspirin. When he was lying in bed comfortable not in distress. No chest pain or dyspnea. However he feels losing energy. No significant leg swelling, he follows up with Dr. Foster as an outpatient setting. Slubber Machine Operator evaluated the patient, echocardiogram was ordered and results pending. If symptoms persistent cardiology may consider had a cath. Vitals and labs are stable Review of systems CONSTITUTIONAL: No fever, no malaise, no fatigue. HEENT: No recent visual problems or hearing problems. Denied any sore throat. CARDIOVASCULAR: No orthopnea, PND, no palpitations, no syncope. PULMONARY: No shortness of breath, no cough, no hemoptysis. GASTROINTESTINAL: No diarrhea, no nausea, no vomiting, no abdominal pain. Normoactive bowel sounds. NEUROLOGICAL: No headaches, no weakness, no numbness. HEMATOLOGICAL: Denies any bleeding or petechiae. GENITOURINARY: Denies any burning micturition, frequency, or urgency. MUSCULOSKELETAL/RHEUMATOLOGICAL: Denies any joint pain, swelling, or any muscle pain. ENDOCRINE: Denies any polyuria or polydipsia. Active Medications Generic Name Dose Route Start Last Admin Trade Name Freq PRN Reason Stop Dose Admin Hydrocodone Bitart/Acetaminophen 1 each 10/04/19 20:55 10/04/19 21:21 [place] 5-325 PO 1 each Q6HR PRN Administration Moderate Pain Aspirin 81 mg 10/07/19 09:00 Aspirin PO DAILY [facility] Atorvastatin Calcium 20 mg 10/05/19 17:30 10/05/19 17:12 Lipitor PO 20 mg W/SUPPER MOMO Administration Heparin Sodium (Porcine) 0 unit 10/04/19 17:26 Heparin IV PER PROTOCOL PRN Low PTT Protocol Heparin Sodium/Sodium Chloride 250 mls @ 8.437 mls/hr 10/04/19 17:30 10/05/19 17:08 25,000 unit/ Sodium Chloride IV Not Given .Q24H MOMO Protocol 12 UNITS/KG/HR Isosorbide Mononitrate 15 mg 10/05/19 09:15 10/06/19 08:20 Imdur PO 15 mg DAILY MOMO Administration Metoprolol Succinate 25 mg 10/05/19 17:30 10/05/19 17:12 Toprol Xl PO 25 mg W/SUPPER MOMO Administration Nitroglycerin 0.4 mg 10/04/19 17:28 Nitrostat SUBLINGUAL Q5M PRN Chest Pain Valsartan 80 mg 10/06/19 07:30 10/06/19 06:28 [place] PO 80 mg W/BRKFST MOMO Administration Objective - Vital Signs Vital signs: Vital Signs Temp 97.8 F 10/06/19 08:00 Pulse 56 L 10/06/19 08:00 Resp 16 10/06/19 08:00 BP 112/68 10/06/19 08:00 Pulse Ox 96 10/06/19 08:00 Intake & Output 10/05/19 10/06/19 10/06/19 18:59 06:59 18:59 Output Total 2150 125 Balance -2150 -125 Weight 70.3 kg Output: Urine 2150 125 Other: # Voids 500 1 - Exam GENERAL: The patient is alert and oriented x3, not in any acute distress. Well developed, well nourished. HEENT: Pupils are round and equally reacting to light. EOMI. No scleral icterus. No conjunctival pallor. Normocephalic, atraumatic. No pharyngeal erythema. No thyromegaly. CARDIOVASCULAR: S1 and S2 present. No murmurs, rubs, or gallops. PULMONARY: Chest is clear to auscultation, no wheezing or crackles. ABDOMEN: Soft, nontender, nondistended, normoactive bowel sounds. No palpable organomegaly. MUSCULOSKELETAL: No joint swelling or deformity. EXTREMITIES: No cyanosis, clubbing, or pedal edema. NEUROLOGICAL: Gross neurological examination did not reveal any focal deficits. SKIN: No rashes. no petechiae. - Labs CBC & Chem 7: 10/06/19 05:49 10/06/19 05:49 Labs: Abnormal Lab Results - Last 24 Hours (Table) 10/06/19 10/06/19 10/06/19 Range/Units 05:49 05:49 05:49 RBC 3.93 L (4.30-5.90) m/uL Hgb 12.8 L (13.0-17.5) gm/dL Hct 38.9 L (39.0-53.0) % Monocytes # (Manual) 1.46 H (0-1.0) k/uL Eosinophils # (Manual) 1.20 H (0-0.7) k/uL APTT 47.8 H (22.0-30.0) sec Sodium 133 L (137-145) mmol/L BUN 25 H (9-20) mg/dL Assessment and Plan Assessment: exertional chest discomfort and elevated troponin level due to non-ST elevated [place] coronary artery disease with history of CABG in 1985 History of AV block status post permanent pacemaker placement Hypertension Hyperlipidemia GERD Arnold's esophagus DVT prophylaxis patient currently on heparin drip Plan: This is a pleasant 89 years old female who presents with same. Continue with aspirin and anticoagulation, currently on heparin drip. Cardiology on the case, possible cardiac cath if symptoms persist per cardiology. Follow-up echocardiogram Labs and medication were reviewed.. Continue same treatment. Continue with symptomatic treatment. Resume home medication. Monitor lytes and vitals. DVT and GI prophylaxis. Further recommendations of the clinical course of the cathleen ragsdale DVT prophylaxis: heparin GI Prophylaxis: Pepcid PT/OT: Pending Prognosis is guarded
--- NOTE | 2019-10-06 12:29 | P.PN ---
Subjective Progress Note Date: 10/06/19 This is a pleasant 89-year-old gentleman who follows regularly with Dr. Crystal in the office. He has a past medical history significant for coronary artery disease with prior three-vessel bypass surgery in 1985, pacemaker implantation, hypertension, hyperlipidemia, GERD, Arnold's esophagus, presented to the hospital with symptoms of exertional chest discomfort and exertional shortness of breath. Patient ruled in for non-Q-wave myocardial infarction. The patient was seen in consultation yesterday by Dr. Cleveland. He continues to be on IV heparin at this time. The patient's children and himself had a discussion, the decision was made to continue medical therapy at this time. Should the patient have any recurrence of symptoms, cardiac catheterization at that point will be revisited. He was seen and examined this morning and denied any chest discomfort, breathing was stable. Continues at this time to be on his IV heparin. Imdur 15 mg was added yesterday, we will increase that to 30 mg today. Blood pressure 118/60 with a heart rate in the 50s, 96% on room air. White blood cell count 8.6, hemoglobin 12.8, platelet count 245. Sodium 133, potassium 4.8, BUN 25, creatinine 0.9. Objective - Vital Signs Vital signs: Vital Signs Temp 97.9 F 10/06/19 12:00 Pulse 53 L 10/06/19 12:00 Resp 16 10/06/19 12:00 BP 118/66 10/06/19 12:00 Pulse Ox 96 10/06/19 12:00 Intake & Output 10/05/19 10/06/19 10/06/19 18:59 06:59 18:59 Output Total 2150 125 Balance -2150 -125 Weight 70.3 kg Output: Urine 2150 125 Other: # Voids 500 1 - Exam PHYSICAL EXAMINATION: GENERAL: 89-year-old gentleman in no acute distress at the time of my examination HEENT: Head is atraumatic, normocephalic. Pupils equal, round. Sclera anicteric. Conjunctiva are clear. Mucous membranes of the mouth are moist. Neck is supple. There is no elevated jugular venous pressure. No carotid bruit is heard. HEART EXAMINATION: Heart S1 and S2 systolic murmur is heard CHEST EXAMINATION: Lungs are clear to auscultation and precussion. No chest wall tenderness is noted on palpation or with deep breathing. ABDOMEN: Soft, nontender. Bowel sounds are heard. No organomegaly noted. EXTREMITIES: 2+ peripheral pulses with no evidence of peripheral edema and no calf tenderness noted. NEUROLOGIC patient is awake, alert and oriented 3 . . - Labs CBC & Chem 7: 10/06/19 05:49 10/06/19 05:49 Labs: Abnormal Lab Results - Last 24 Hours (Table) 10/06/19 10/06/19 10/06/19 Range/Units 05:49 05:49 05:49 RBC 3.93 L (4.30-5.90) m/uL Hgb 12.8 L (13.0-17.5) gm/dL Hct 38.9 L (39.0-53.0) % Monocytes # (Manual) 1.46 H (0-1.0) k/uL Eosinophils # (Manual) 1.20 H (0-0.7) k/uL APTT 47.8 H (22.0-30.0) sec Sodium 133 L (137-145) mmol/L BUN 25 H (9-20) mg/dL Assessment and Plan Plan: Assessment and plan #1Exertional chest pain with elevated troponins, non-ST elevated myocardial infarction #2History of coronary artery disease with 3 vessel CABG in 1985 #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 Continue baby aspirin, statin, Imdur we'll increase to 30, continue metoprolol, and valsartan. Increase the patient's activity today as tolerated, if the patient has no further symptoms we will continue maximal medical therapy, if the patient becomes symptomatic, the option of cardiac catheterization will then be revisited. DNP note has been reviewed, I agree with a documented findings and plan of care. Patient was seen and examined.
[2019-10-06] MEDS: HEPARIN SOD,PORK IN 0.45% NACL 25,000 UNIT in 0.45% NACL 1 250ML.BAG IV SCH (14:07)
[2019-10-06] MEDS: ATORVASTATIN 20 MG TAB PO SCH (17:28)
[2019-10-06] MEDS: METOPROLOL SUCCINATE (ER) 25 MG TAB.ER.24H PO SCH (17:28)
[2019-10-06] MEDS: FAMOTIDINE 20 MG/2 ML VIAL IV SCH (20:25)
[2019-10-07] MEDS: VALSARTAN 80 MG TAB PO SCH (06:42)
[2019-10-07] MEDS: ISOSORBIDE MONONITRATE ER 30 MG TAB.ER.24H PO SCH (08:40)
[2019-10-07] MEDS: FAMOTIDINE 20 MG/2 ML VIAL IV SCH (08:41)
[2019-10-07] MEDS: ASPIRIN 81 MG PO SCH (08:41)
--- NOTE | 2019-10-07 10:42 | P.PN ---
Subjective Progress Note Date: 10/07/19 This is a pleasant 89-year-old gentleman who follows regularly with Dr. Crystal in the office. He has a past medical history significant for coronary artery disease with prior three-vessel bypass surgery in 1985, pacemaker implantation, hypertension, hyperlipidemia, GERD, Arnold's esophagus, presented to the hospital with symptoms of exertional chest discomfort and exertional shortness of breath. Patient ruled in for non-Q-wave myocardial infarction. The patient was seen in consultation yesterday by Dr. Cleveland. He continues to be on IV heparin at this time. The patient's children and himself had a discussion, the decision was made to continue medical therapy at this time. Should the patient have any recurrence of symptoms, cardiac catheterization at that point will be revisited. He was seen and examined this morning and denied any chest discomfort, breathing was stable. Continues at this time to be on his IV heparin. Imdur 15 mg was added yesterday, we will increase that to 30 mg today. Blood pressure 118/60 with a heart rate in the 50s, 96% on room air. White blood cell count 8.6, hemoglobin 12.8, platelet count 245. Sodium 133, potassium 4.8, BUN 25, creatinine 0.9. 10/07/2019 Patient was seen and examined this morning, sitting up in his chair at bedside. He had a good night last night, denies any chest discomfort and is breathing overall has been stable. Blood pressure 116/65 with a heart rate in the 70s this morning. Echocardiogram with Doppler study has been performed but is yet pending. We will discontinue the IV heparin today, continue baby aspirin, Lipitor, Imdur, metoprolol, and Diovan. Objective - Vital Signs Vital signs: Vital Signs Temp 97.7 F 10/07/19 08:45 Pulse 58 L 10/07/19 08:45 Resp 18 10/07/19 08:45 BP 126/56 10/07/19 08:45 Pulse Ox 96 10/07/19 08:45 Intake & Output 10/06/19 10/07/19 10/07/19 18:59 06:59 18:59 Intake Total 486 0 449.136 Output Total 200 1400 Balance 286 -1400 449.136 Weight 69.5 kg Intake: Intake, IV Titration 129.136 Amount Heparin Sod,Pork in 0.45% 129.136 NaCl 25,000 unit In 0.45 % NaCl 1 250ml.bag @ 12 UNITS/KG/HR 8.437 mls/hr IV .Q24H [facility] Rx#: [id number] Oral 486 0 320 Output: Urine 200 1400 Other: # Voids 3 - Exam PHYSICAL EXAMINATION: GENERAL: 89-year-old gentleman in no acute distress at the time of my examination HEENT: Head is atraumatic, normocephalic. Pupils equal, round. Sclera anicteric. Conjunctiva are clear. Mucous membranes of the mouth are moist. Neck is supple. There is no elevated jugular venous pressure. No carotid bru it is heard. HEART EXAMINATION: Heart S1 and S2 systolic murmur is heard CHEST EXAMINATION: Lungs are clear to auscultation and precussion. No chest wall tenderness is noted on palpation or with deep breathing. ABDOMEN: Soft, nontender. Bowel sounds are heard. No organomegaly noted. EXTREMITIES: 2+ peripheral pulses with no evidence of peripheral edema and no calf tenderness noted. NEUROLOGIC patient is awake, alert and oriented 3 . . 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 We will also give the patient's son a call later today to update him on how the patient is doing overall. Plan for possible discharge soon. Up with physical therapy today. DNP note has been reviewed, I agree with a documented findings and plan of care. Patient was seen and examined.
--- NOTE | 2019-10-07 13:50 | P.PN ---
Subjective patient is a 89-year-old male with a known history of coronary artery disease status post CABG in 1985, hypertension, hyperlipidemia, GERD/Arnold's esophagus, history of pacemaker placement came to ER with complaints of progressively worsening shortness of breath and chest discomfort for the past 2 weeks. Patient says that 2 weeks ago she was walking around the block and felt like Substernalchest discomfort and shortness of breath. 2 days ago he was unable to walk to the hallway. Denied any radiation to the arm. Patient felt like aching pain in the both shoulders. Patient call his son who is a physician and was recommended to go to emergency room.denied any nausea or vomiting. No diaphoresis. No worsening leg swelling. No fever no chills. No cough or sputum production. Patient follows with Dr. Ye as an outpatient. chest x-ray showed sinus rhythm with first-degree AV block. Chest x-ray showed chronic parenchymal changes. Old granulomatous disease. No acute process. Laboratory datashowed sodium 133, potassium 5.2, chloride 100 bicarb is 25 and BNP 29 and creatinine 1.0 to troponin level 0.047, 0.070, 0.074 LDL is 49 Subjective 10/06/2019 This is a pleasant 69 years old male who presents with signs symptoms of non- STEMI, was treated with heparin drip as well as aspirin. When he was lying in bed comfortable not in distress. No chest pain or dyspnea. However he feels losing energy. No significant leg swelling, he follows up with Dr. Foster as an outpatient setting. Combatant Diver Officer evaluated the patient, echocardiogram was ordered and results pending. If symptoms persistent cardiology may consider had a cath. Vitals and labs are stable 10/07/2019 Patient with no chest pain or dyspnea, his energy is improving, no leg swelling. Cartilages stop the heparin drip today, no labs done Patient is clinically stable but he needs monitoring for 24 hours since we stopped his heparin drip today. Physical therapy evaluation recommended home health care which is ordered Follow-up hemoglobin level today if stable patient can be discharged once cleared by cardiology team as well Objective - Vital Signs Vital signs: Vital Signs Temp 97.7 F 10/07/19 12:00 Pulse 52 L 10/07/19 12:30 Resp 18 10/07/19 12:30 BP 96/46 10/07/19 12:00 Pulse Ox 99 10/07/19 12:00 Intake & Output 10/06/19 10/07/19 10/07/19 18:59 06:59 18:59 Intake Total 486 0 449.136 Output Total 200 1400 Balance 286 -1400 449.136 Weight 69.5 kg Intake: Intake, IV Titration 129.136 Amount Heparin Sod,Pork in 0.45% 129.136 NaCl 25,000 unit In 0.45 % NaCl 1 250ml.bag @ 12 UNITS/KG/HR 8.437 mls/hr IV .Q24H [facility] Rx#: [id number] Oral 486 0 320 Output: Urine 200 1400 Other: # Voids 3 - Exam GENERAL: The patient is alert and oriented x3, not in any acute distress. Well developed, well nourished. HEENT: Pupils are round and equally reacting to light. EOMI. No scleral icterus. No conjunctival pallor. Normocephalic, atraumatic. No pharyngeal erythema. No thyromegaly. CARDIOVASCULAR: S1 and S2 present. No murmurs, rubs, or gallops. PULMONARY: Chest is clear to auscultation, no wheezing or crackles. ABDOMEN: Soft, nontender, nondistended, normoactive bowel sounds. No palpable organomegaly. MUSCULOSKELETAL: No joint swelling or deformity. EXTREMITIES: No cyanosis, clubbing, or pedal edema. NEUROLOGICAL: Gross neurological examination did not reveal any focal deficits. SKIN: No rashes. no petechiae. - Labs CBC & Chem 7: 10/06/19 05:49 10/06/19 05:49 Labs: Abnormal Lab Results - Last 24 Hours (Table) 10/07/19 Range/Units 06:36 APTT 40.3 H (22.0-30.0) sec Assessment and Plan Assessment: exertional chest discomfort and elevated troponin level due to non-ST elevated CT coronary artery disease with history of CABG in 1985 History of AV block status post permanent pacemaker placement Hypertension Hyperlipidemia GERD Arnold's esophagus DVT prophylaxis patient currently on heparin drip Plan: This is a pleasant 89 years old female who presents with same. Continue with aspirin and anticoagulation, currently on heparin drip. Cardiology on the case, possible cardiac cath if symptoms persist per cardiology. Follow-up echocardiogram Labs and medication were reviewed.. Continue same treatment. Continue with symptomatic treatment. Resume home medication. Monitor lytes and vitals. DVT and GI prophylaxis. Further recommendations of the clinical course of the patient DVT prophylaxis: heparin GI Prophylaxis: Pepcid PT/OT: Pending Prognosis is guarded
[2019-10-07] MEDS: ATORVASTATIN 20 MG TAB PO SCH (17:06)
[2019-10-07] MEDS: METOPROLOL SUCCINATE (ER) 25 MG TAB.ER.24H PO SCH (17:09)
[2019-10-07] MEDS: FAMOTIDINE 20 MG TAB PO SCH (21:40)
[2019-10-08] MEDS: VALSARTAN 80 MG TAB PO SCH (06:35)
[2019-10-08 07:54] LABS: HCT 37.9 % (39.0-53.0); HGB 12.8 gm/dL (13.0-17.5); MCH 33.3 pg (25.0-35.0); MCHC 33.9 g/dL (31.0-37.0); MCV 98.5 fL (80.0-100.0); Mean Platelet Volume 7.5; Platelet Count 257 k/uL (150-450); RBC 3.85 m/uL (4.30-5.90); WBC 8.7 k/uL (3.8-10.6)
[2019-10-08] MEDS: ASPIRIN 81 MG PO SCH (09:09)
[2019-10-08] MEDS: FAMOTIDINE 20 MG TAB PO SCH (09:09)
[2019-10-08] MEDS: ISOSORBIDE MONONITRATE ER 30 MG TAB.ER.24H PO SCH (09:09)
[2019-10-08 09:15] LABS: Basophils # (M) 0.09 k/uL (0-0.2); Eosinophils # (M) 0.44 k/uL (0-0.7); Lymphocytes # (M) 1.48 k/uL (1.0-4.8); Monocytes # (M) 1.13 k/uL (0-1.0); Neutrophils # (M) 5.74 k/uL (1.3-7.7); Neutrophils % (M) 66 %; Nucleated Red Blood Cells 0 /100 WBC (0-0); Total Cells Counted 200
[2019-10-08 09:16] LABS: Anisocytosis (M) Present; Poikilocytosis (M) Present
[2019-10-08 10:40] VITALS: BP 95/45; PULSE 73; RESP 18; TEMP 98.3
--- NOTE | 2019-10-08 11:00 | ECHOF ---
Referral Reason:LVF MEASUREMENTS -------- HEIGHT: 172.7 cm WEIGHT: 69.9 kg BP: 135/81 IVSd: 1.0 cm (0.6 - 1.1) LVIDd: 2.8 cm (3.9 - 5.3) LVPWd: 1.2 cm (0.6 - 1.1) IVSs: 1.6 cm LVIDs: 2.2 cm LVPWs: 1.6 cm LAESV Index (A-L): 30.31 ml/m Ao Diam: 3.0 cm (2.0 - 3.7) AV Cusp: 1.8 cm (1.5 - 2.6) LA Diam: 2.7 cm (2.7 - 3.8) MV EXCURSION: 10.933 mm (> 18.000) MV EF SLOPE: 55 mm/s (70 - 150) EPSS: 1.3 cm MV E Cedric: 0.74 m/s MV DecT: 359 ms MV A Cedric: 0.99 m/s MV E/A Ratio: 0.75 RAP: 5.00 mmHg RVSP: 34.49 mmHg FINDINGS -------- Paced rhythm. This was a technically difficult study with suboptimal views. The left ventricular size is normal. There is borderline concentric left ventricular hypertrophy. Overall left ventricular systolic function is low-normal with, an EF between 50 - 55 %. Left ventr icular fillimg pressure cannot be estimated due to paced rhythm. The right ventricle is normal in size. LA is midly dilated 29-33ml/m2. The right atrial size is normal. 5.0mg of Lumason was utilized for enhancement of images Interatrial and interventricular septum intact. The aortic valve is trileaflet and appears structurally normal. The mitral valve is normal. Mild mitral regurgitation is present. The tricuspid valve appears structurally normal. Moderate tricuspid regurgitation present. Right ventricular systolic pressure is normal at < 35 mmHg. There is no pulmonic regurgitation present. The aortic root size is normal. IVC Not well visulized. There is no pericardial effusion. CONCLUSIONS -------- 1. Paced rhythm. 2. This was a technically difficult study with suboptimal views. 3. The left ventricular size is normal. 4. There is borderline concentric left ventricular hypertrophy. 5. Overall left ventricular systolic function is low-normal with, an EF between 50 - 55 %. 6. Left ventricular fillimg pressure cannot be estimated due to paced rhythm. 7. The right ventricle is normal in size. 8. LA is midly dilated 29-33ml/m2. 9. The right atrial size is normal. 10. 5.0mg of Lumason was utilized for enhancement of images 11. Interatrial and interventricular septum intact. 12. The aortic valve is trileaflet and appears structurally normal. 13. The mitral valve is normal. 14. Mild mitral regurgitation is present. 15. The tricuspid valve appears structurally normal. 16. Moderate tricuspid regurgitation present. 17. Right ventricular systolic pressure is normal at < 35 mmHg. 18. There is no pulmonic regurgitation present. 19. The aortic root size is normal. 20. IVC Not well visulized. 21. There is no pericardial effusion. AUTOMOBILE SALES REPRESENTATIVE: Rhonda Cheng RDCS
--- NOTE | 2019-10-08 11:45 | P.PN ---
Subjective Progress Note Date: 10/08/19 This is a pleasant 89-year-old gentleman who follows regularly with Dr. Crystal in the office. He has a past medical history significant for coronary artery disease with prior three-vessel bypass surgery in 1985, pacemaker implantation, hypertension, hyperlipidemia, GERD, Arnold's esophagus, presented to the hospital with symptoms of exertional chest discomfort and exertional shortness of breath. Patient ruled in for non-Q-wave myocardial infarction. The patient was seen in consultation yesterday by Dr. Cleveland. He continues to be on IV heparin at this time. The patient's children and himself had a discussion, the decision was made to continue medical therapy at this time. Should the patient have any recurrence of symptoms, cardiac catheterization at that point will be revisited. He was seen and examined this morning and denied any chest discomfort, breathing was stable. Continues at this time to be on his IV heparin. Imdur 15 mg was added yesterday, we will increase that to 30 mg today. Blood pressure 118/60 with a heart rate in the 50s, 96% on room air. White blood cell count 8.6, hemoglobin 12.8, platelet count 245. Sodium 133, potassium 4.8, BUN 25, creatinine 0.9. 10/07/2019 Patient was seen and examined this morning, sitting up in his chair at bedside. He had a good night last night, denies any chest discomfort and is breathing overall has been stable. Blood pressure 116/65 with a heart rate in the 70s this morning. Echocardiogram with Doppler study has been performed but is yet pending. We will discontinue the IV heparin today, continue baby aspirin, Lipitor, Imdur, metoprolol, and Diovan. 10/08/2019 Patient seen and examined this morning, sitting up in the chair bedside. Denies any chest discomfort, breathing is stable. Blood pressure 114/70, 95/40, heart rate in the 70s, 98% on room air. White blood cell count 8.7, hemoglobin 12.8, platelet count 257. Objective - Vital Signs Vital signs: Vital Signs Temp 98.3 F 10/08/19 08:00 Pulse 73 10/08/19 08:00 Resp 18 10/08/19 08:00 BP 95/45 10/08/19 08:00 Pulse Ox 98 10/08/19 08:00 Intake & Output 10/07/19 10/08/19 10/08/19 18:59 06:59 18:59 Intake Total 1049.136 240 Balance 1049.136 240 Weight 69.6 kg Intake: Intake, IV Titration 129.136 Amount Heparin Sod,Pork in 0.45% 129.136 NaCl 25,000 unit In 0.45 % NaCl 1 250ml.bag @ 12 UNITS/KG/HR 8.437 mls/hr IV .Q24H [facility] Rx#: [id number] Oral 920 240 Other: Voiding Method Toilet Toilet # Voids 3 - Exam PHYSICAL EXAMINATION: GENERAL: 89-year-old gentleman in no acute distress at the time of my examination HEENT: Head is atraumatic, normocephalic. Pupils equal, round. Sclera anicteric. Conjunctiva are clear. Mucous membranes of the mouth are moist. Neck is supple. There is no elevated jugular venous pressure. No carotid bruit is heard. HEART EXAMINATION: Heart S1 and S2 systolic murmur is heard CHEST EXAMINATION: Lungs are clear to auscultation and precussion. No chest wall tenderness is noted on palpation or with deep breathing. ABDOMEN: Soft, nontender. Bowel sounds are heard. No organomegaly noted. EXTREMITIES: 2+ peripheral pulses with no evidence of peripheral edema and no calf tenderness noted. NEUROLOGIC patient is awake, alert and oriented 3 . . 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 From cardiology's perspective, patient may be able to be discharged home today. We'll make him a follow-up appointment in the office post discharge. DNP note has been reviewed, I agree with a documented findings and plan of care. Patient was seen and examined.
--- NOTE | 2019-10-08 19:33 | P.DS ---
Providers Date of admission: 10/05/19 14:00 Attending physician: Sara Luis Consults: 10/04/19 17:28 Consult Physician Urgent Consulting Provider: Dao Celeste Consult Reason/Comments: nstemi, unstable angina Do you want consulting provider notified?: Yes Primary care physician: Misael Foster Hospital Course: Diagnoses: exertional chest discomfort and elevated troponin level due to non-ST elevated [place] coronary artery disease with history of CABG in 1985 History of AV block status post permanent pacemaker placement Hypertension Hyperlipidemia GERD History of Arnold's esophagus Hospital course: patient is a 89-year-old male with a known history of coronary artery disease status post CABG in 1985, hypertension, hyperlipidemia, GERD/Arnold's esophagus, history of pacemaker placement came to ER with complaints of progressively worsening shortness of breath and chest discomfort for the past 2 weeks. Patient has been evaluated by data warehouse architect, found to have non-STEMI, he was treated with heparin drip and aspirin,valsartan and Imdur were also added by data warehouse architect . Eventually patient showed interval improvement in his symptoms removed, for more than 48 hours he had no chest pain, no dyspnea, his low energy level improved, and with no development of leg swelling . Physical therapy recommended home health care Echocardiogram ejection fraction 50-55% Patient was cleared by data warehouse architect for discharge Problems and management plan were discussed with the patient and he verbalized understanding and acceptance Patient was found stable and can be discharged home however he needs follow-up as an outpatient. Patient was instructed to follow up with PCP Dr. Foster within one week and patient agrees. Patient is aware with his appointment with Dr. Mustafa on 10/09 and he intends to follow up as he told me Gen: patient is a AAOx3, no distress CVS: S1-S2, RRR, no murmur Lungs: B/L CTA, no wheezing Abdomen: soft, no distention, no tenderness, positive bowel sounds Extremity: no leg edema or induration Time spent more than 35 minutes Patient Condition at Discharge: Fair Plan - Discharge Summary New Discharge Prescriptions: New Aspirin 81 mg PO DAILY #30 chew Isosorbide Mononitrate ER [Imdur] 30 mg PO DAILY #30 tab.er.24h Nitroglycerin Sl Tabs [Nitrostat] 0.4 mg SUBLINGUAL Q5M PRN #20 tab PRN Reason: Chest Pain Continue Valsartan/Hydrochlorothiazide [Valsartan-Hctz 80-12.5 mg Tab] 1 tab PO W/BRKFST Reedley-3 Acid Ethyl Esters [Lovaza] 1 gm PO BID-W/MEALS Atorvastatin [Lipitor] 20 mg PO W/SUPPER Lansoprazole [Prevacid] 30 mg PO W/BRKFST Calcium Polycarbophil [Fibercon] 625 mg PO W/BRKFST Multivitamin [Men's Multi-Vitamin] 1 tab PO W/BRKFST Garlic 1,500 mg PO W/BRKFST Metoprolol Succinate [Toprol XL] 25 mg PO W/SUPPER Cholecalciferol [Vitamin D3 (25 Mcg = 1000 Iu)] 2,000 unit PO W/SUPPER Discontinued Naproxen [Naprosyn] 500 mg PO BID-W/MEALS PRN PRN Reason: Pain Aspirin 325 mg PO W/BRKFST Discharge Medication List Atorvastatin [Lipitor] 20 mg PO W/SUPPER 03/03/14 [History] Lansoprazole [Prevacid] 30 mg PO W/BRKFST 03/03/14 [History] Reedley-3 Acid Ethyl Esters [Lovaza] 1 gm PO BID-W/MEALS 03/03/14 [History] Valsartan/Hydrochlorothiazide [Valsartan-Hctz 80-12.5 mg Tab] 1 tab PO W/BRKFST 03/03/14 [History] Calcium Polycarbophil [Fibercon] 625 mg PO W/BRKFST 03/05/14 [History] Garlic 1,500 mg PO W/BRKFST 03/05/14 [History] Multivitamin [Men's Multi-Vitamin] 1 tab PO W/BRKFST 03/05/14 [History] Cholecalciferol [Vitamin D3 (25 Mcg = 1000 Iu)] 2,000 unit PO W/SUPPER 10/04/19 [History] Metoprolol Succinate [Toprol XL] 25 mg PO W/SUPPER 10/04/19 [History] Aspirin 81 mg PO DAILY #30 chew 10/08/19 [Rx] Isosorbide Mononitrate ER [Imdur] 30 mg PO DAILY #30 tab.er.24h 10/08/19 [Rx] Nitroglycerin Sl Tabs [Nitrostat] 0.4 mg SUBLINGUAL Q5M PRN #20 tab 10/08/19 [Rx] Follow up Appointment(s)/Referral(s): Harvinder Crystal MD [STAFF PHYSICIAN] - 10/10/19 11:00 am (You have an appointment on this Monday 10/09 as informed the medical team. Please call to confirm time of your appointment or go at 11am) Misael Foster DO [Primary Care Provider] - 1-2 days (Office will call with appointment) [facility], [NON-STAFF] - Patient Instructions/Handouts: Heart Attack (DC), Chest Pain (DC), Pacemaker (DC) Activity/Diet/Wound Care/Special Instructions: heart healthy diet activity is limited till you see your doctor Discharge Disposition: HOME WITH HOME HEALTH SERVICES
== END 2019-10-08 14:56 | disposition home health service (06) | DRG 282 ==
LOC: EC 15:33 → 3SCARD 17:44 → OBSVTOIN 10-05 14:00
PROVIDERS: ADMIT Hospitalist; ATTEND Hospitalist
DX: I21.4 Non-ST elevation (NSTEMI) myocardial infarction (principal); E78.5 Hyperlipidemia, unspecified; I10 Essential (primary) hypertension; I25.10 Atherosclerotic heart disease of native coronary artery without angina pectoris; I44.0 Atrioventricular block, first degree; K21.9 Gastro-esophageal reflux disease without esophagitis; K22.70 Barrett's esophagus without dysplasia; Z79.82 Long term (current) use of aspirin; Z79.899 Other long term (current) drug therapy; Z95.0 Presence of cardiac pacemaker; Z95.1 Presence of aortocoronary bypass graft; Z88.1 Allergy status to other antibiotic agents; Z88.5 Allergy status to narcotic agent; Z88.0 Allergy status to penicillin; Z11.59 Encounter for screening for other viral diseases
CPT/HCPCS: 36415; 71046; 80048; 80053; 80061; 83735; 83880; 84484; 85025; 85610; 85730; 93005; 93306; 96365; 96376; 99285

== ENCOUNTER 2019-11-04 10:53 | Day surgery (SDC) | payer MEDICARE ==
[2019-11-03 09:14] VITALS: BMI 23.6
[~2019-11-04 10:53] MED LIST changes: +ALPRAZolam 0.25 MG TAB PO PRN; +ALPRAZolam 0.5 MG TAB PO PRN; +ASPIRIN 325 MG TAB PO ONE; +ATORVASTATIN 80 MG TAB PO ONE; -LACTATED RINGERS 1,000 ML IV SCH; -LIDOCAINE 1% 20 ML VIAL (10MG/ML) FOR IV START INTRADERMA PRN; +NITROGLYCERIN SL TABS 0.4 MG TAB SUBLINGUAL PRN; +SODIUM CHLORIDE 0.9% 1,000 ML in EMPTY BAG 1 BAG IV ONE
[2019-11-04] MEDS ORDERED: MIDAZOLAM 2 MG/2 ML VIAL IVP ONE (13:00)
[2019-11-04] MEDS ORDERED: LIDOCAINE 1% INJ 10MG/ML (20 ML MDV) SQ ONE (13:00)
[2019-11-04] MEDS ORDERED: IOPAMIDOL-300 100ML BTL INJ ONE (13:24)
[2019-11-04] MEDS ORDERED: IOPAMIDOL-370 100ML BTL INJ ONE (13:40)
[2019-11-04] MEDS ORDERED: RX INFO: IV CONTRAST WAS GIVEN 1 EACH MISC MISCELLANE PRN (13:59)
[2019-11-04] MEDS ORDERED: SODIUM CHLORIDE 0.9% 1,000 ML IV SCH (14:00)
[2019-11-04] MEDS ORDERED: VALSARTAN 80 MG TAB PO SCH (17:30)
[2019-11-04] MEDS ORDERED: ATORVASTATIN 40 MG TAB PO SCH (17:30)
[2019-11-04] MEDS ORDERED: hydroCHLOROthiazide 12.5 MG CAP PO SCH (17:30)
[2019-11-04 20:31] VITALS: BP 154/63; PULSE 52; RESP 18; TEMP 98.2
[2019-11-04] MEDS ORDERED: METOPROLOL SUCCINATE (ER) 25 MG TAB.ER.24H PO SCH (21:00)
--- NOTE | 2019-11-04 21:06 | CC ---
CARDIAC CATHETERIZATION REPORT DATE OF SERVICE: 11/04/2019 PERFORMING PHYSICIAN: Mason Robles M.D. PROCEDURES PERFORMED: 1. Selective left and right coronary angiogram. 2. Left internal mammary artery to left anterior descending coronary artery angiogram. 3. Saphenous vein graft to diagonal angiogram. INDICATION: This is an 89-year-old gentleman who sees Dr. Crystal in the office as an outpatient with history of coronary artery disease and prior coronary artery bypass grafting that was performed about 30 years ago at [facility], with unknown details about the anatomy of the bypass. He was experiencing symptoms of chest discomfort with exertion in spite of maximized medical treatment. Because of that, heart catheterization was advised. APPROACH: Right common femoral artery. COMPLICATIONS: None. LEVEL OF SEDATION: Moderate, with sedation length of 38 minutes. PROCEDURE DESCRIPTION: After obtaining informed consent, the patient was brought to the cardiac slabber light. The right common femoral artery was cannulated using micropuncture technique under ultrasound guidance. The micropuncture wire passed easily. Then I placed a 6-Sami sheath at the right common femoral artery. Subsequently I did selective left and right coronary angiogram using JL4 and JR4 catheters. The SVG to diagonal angiogram was performed using the JR4 catheter and the PARISI to LAD was performed using an IM catheter. The procedure was completed without any complications. SELECTIVE CORONARY ANGIOGRAM: 1. The left main is a large-caliber vessel which seems to be extremely calcified with a lesion that appeared to be in the range of 50% involving the distal portion. It does involve the takeoff of the left circumflex. The left main bifurcates into LCX and LAD. 2. The LCX has a critical lesion that appeared to be in the range of 99.9% in the proximal portion. The mid and distal left circumflex appeared to be angiographically normal. 3. The LAD is 100% occluded from the ostium. 4. The right coronary artery is 100% occluded as well. ANGIOGRAM OF CORONARY BYPASSES: 1. The PARISI to LAD is patent. 2. The SVG to diagonal has a critical lesion that appeared to be in the range of 99.9%. CONCLUSION: 1. Severe triple-vessel coronary artery disease. 2. Patent PARISI to LAD. 3. Critical disease involving the SVG to diagonal. 4. Critical disease involving the left circumflex. 5. Occluded right coronary artery. POST-PROCEDURE MANAGEMENT: Given the above anatomy and the high risk features of the lesion, I advised proceeding with PCI of the SVG to diagonal and SVG to left circumflex after discussing the risks with the family. The patient is going to be taken off the table at this point and Dr. Crystal will discuss with him and his family the next step. RODRIGO / ALVARO: [id number] /
[2019-11-05] MEDS ORDERED: PANTOPRAZOLE 40 MG TABLET PO SCH (07:30)
[2019-11-05] MEDS ORDERED: ISOSORBIDE MONONITRATE ER 30 MG TAB.ER.24H PO SCH (12:30)
== END 2019-11-04 21:15 ==
LOC: CATHCVL 10:53 → 3NCARDOBS 15:50 → CATHCVL 21:15
PROVIDERS: ATTEND Internal Medicine Interventional Cardiology
DX: I25.110 Atherosclerotic heart disease of native coronary artery with unstable angina pectoris (principal); I25.710 Atherosclerosis of autologous vein coronary artery bypass graft(s) with unstable angina pectoris; I25.82 Chronic total occlusion of coronary artery; I65.29 Occlusion and stenosis of unspecified carotid artery; I10 Essential (primary) hypertension; E78.00 Pure hypercholesterolemia, unspecified; I44.2 Atrioventricular block, complete; Z95.0 Presence of cardiac pacemaker; E78.5 Hyperlipidemia, unspecified; Z82.49 Family history of ischemic heart disease and other diseases of the circulatory system; Z79.82 Long term (current) use of aspirin; Z79.899 Other long term (current) drug therapy; Z88.1 Allergy status to other antibiotic agents; Z88.3 Allergy status to other anti-infective agents; Z88.5 Allergy status to narcotic agent
CPT/HCPCS: 93455; C1769 ×3; C1894; J2250; J2001; Q9967 ×2

== ENCOUNTER 2019-11-05 20:04 | Inpatient (IN) | payer MEDICARE ==
[2019-11-05] MEDS ORDERED: SODIUM CHLORIDE 0.9% 1,000 ML IV STA (20:15)
--- NOTE | 2019-11-05 20:20 | ED ---
Neuro HPI - General Chief Complaint: Neuro Symptoms/Deficit Stated Complaint: Poss Stroke Time Seen by Provider: 11/05/19 20:15 Source: patient, family, RN notes reviewed Mode of arrival: wheelchair Limitations: altered mental status - History of Present Illness Is the patient presenting with stroke symptoms?: Yes Initial Comments: This is a 89-year-old male with a history of heart disease and possibly a prior history of a TIA who has sudden onset of left eye visual problems also some confusion and difficulty with speech around 7 to 7:15 this evening. He was brought in by family. No recent complains of trauma fevers chills nausea vomiting sweats no focal deficits was upper or lower extremities. Is some question that he apparently is improving with respect the symptoms he states his eye is better. No other complaints or modifying factors at this time - Related Data Home Medications: Home Medications Medication Instructions Recorded Confirmed Lansoprazole [Prevacid] 30 mg PO AC-BRKFST 03/03/14 11/05/19 [place]-3 Acid Ethyl Esters [Lovaza] 1 gm PO AC-BID 03/03/14 11/05/19 Valsartan/Hydrochlorothiazide 1 tab PO AC-SUPPER 03/03/14 11/05/19 [Valsartan-Hctz 80-12.5 mg Tab] Garlic 1,000 mg PO AC-BRKFST 03/05/14 11/05/19 Multivitamin [Men's Multi-Vitamin] 1 tab PO AC-BRKFST 03/05/14 11/05/19 Cholecalciferol [Vitamin D3 (25 5,000 unit PO AC-SUPPER 10/04/19 11/05/19 Mcg = 1000 Iu)] Metoprolol Succinate [Toprol XL] 50 mg PO DAILY 10/04/19 11/05/19 Atorvastatin [Lipitor] 40 mg PO AC-SUPPER 11/03/19 11/05/19 Isosorbide Mononitrate ER [Imdur] 30 mg PO AC-LUNCH 11/03/19 11/05/19 Naproxen 500 mg PO AC-BID 11/03/19 11/05/19 Nitroglycerin Sl Tabs [Nitrostat] 0.4 mg SL Q5M PRN 11/05/19 11/05/19 Previous Rx's Medication Instructions Recorded Aspirin 81 mg PO DAILY #30 chew 10/08/19 Allergies/Adverse Reactions: Allergies Allergy/AdvReac Type Severity Reaction Status Date / Time meperidine HCl [From Demerol] Allergy Severe Nausea Verified 11/05/19 20:55 neomycin [Neomycin] Allergy Rash/Hives Verified 11/05/19 20:55 amoxicillin [Amoxicillin] AdvReac Severe Nausea Verified 11/05/19 20:55 ,ABDOMINAL PAIN clarithromycin [From Biaxin] AdvReac Severe Nausea Verified 11/05/19 20:55 Review of Systems ROS Statement: Those systems with pertinent positive or pertinent negative responses have been documented in the HPI. ROS Other: All systems not noted in ROS Statement are negative. General Exam - General Exam Comments Initial Comments: This a well-developed well-nourished awake alert male Limitations: altered mental status General appearance: alert, in no apparent distress Head exam: Present: atraumatic, normocephalic, normal inspection Eye exam: Present: normal appearance, PERRL, EOMI. Absent: scleral icterus, conjunctival injection, periorbital swelling ENT exam: Present: normal exam, mucous membranes moist Neck exam: Present: normal inspection. Absent: tenderness, meningismus, lymphadenopathy Respiratory exam: Present: normal lung sounds bilaterally. Absent: respiratory distress, wheezes, rales, rhonchi, stridor Cardiovascular Exam: Present: regular rate, normal rhythm, normal heart sounds. Absent: systolic murmur, diastolic murmur, rubs, gallop, clicks GI/Abdominal exam: Present: soft, normal bowel sounds. Absent: distended, tenderness, guarding, rebound, rigid Extremities exam: Present: normal inspection, full ROM, normal capillary refill. Absent: tenderness, pedal edema, joint swelling, calf tenderness Back exam: Present: normal inspection Neurological exam: Present: alert, altered, oriented X3 (Patient is slow to answer.), CN II-XII intact, other. Absent: motor sensory deficit Psychiatric exam: Present: normal affect, normal mood Skin exam: Present: warm, dry, intact, normal color. Absent: rash Stroke MDM - Lab Data Result diagrams: 11/05/19 20:17 11/05/19 20:17 Lab Results 11/05/19 11/05/19 11/05/19 Range/Units 20:17 20:17 20:17 WBC 9.2 (3.8-10.6) k/uL RBC 4.25 L (4.30-5.90) m/uL Hgb 13.9 (13.0-17.5) gm/dL Hct 42.6 (39.0-53.0) % MCV 100.2 H (80.0-100.0) fL MCH 32.7 (25.0-35.0) pg MCHC 32.6 (31.0-37.0) g/dL RDW 12.8 (11.5-15.5) % Plt Count 247 (150-450) k/uL Neutrophils % 51 % Lymphocytes % 29 % Monocytes % 12 % Eosinophils % 4 % Basophils % 1 % Neutrophils # 4.7 (1.3-7.7) k/uL Lymphocytes # 2.6 (1.0-4.8) k/uL Monocytes # 1.1 H (0-1.0) k/uL Eosinophils # 0.4 (0-0.7) k/uL Basophils # 0.1 (0-0.2) k/uL PT 10.7 (9.0-12.0) sec INR 1.0 (<1.2) APTT 23.0 (22.0-30.0) sec Sodium 132 L (137-145) mmol/L Potassium 4.7 (3.5-5.1) mmol/L Chloride 96 L (98-107) mmol/L Carbon Dioxide 28 (22-30) mmol/L Anion Gap 8 mmol/L BUN 31 H (9-20) mg/dL Creatinine 1.08 (0.66-1.25) mg/dL Est GFR (CKD-EPI)AfAm 70 (>60 ml/min/1.73 sqM) Est GFR (CKD-EPI)NonAf 61 (>60 ml/min/1.73 sqM) Glucose 93 (74-99) mg/dL Calcium 9.7 (8.4-10.2) mg/dL Total Bilirubin 0.5 (0.2-1.3) mg/dL AST 42 (17-59) U/L ALT 34 (4-49) U/L Alkaline Phosphatase 103 (38-126) U/L Creatine Kinase 154 (55-170) U/L Troponin I (0.000-0.034) ng/mL Total Protein 7.1 (6.3-8.2) g/dL Albumin 4.3 (3.5-5.0) g/dL 11/05/19 Range/Units 20:17 WBC (3.8-10.6) k/uL RBC (4.30-5.90) m/uL Hgb (13.0-17.5) gm/dL Hct (39.0-53.0) % MCV (80.0-100.0) fL MCH (25.0-35.0) pg MCHC (31.0-37.0) g/dL RDW (11.5-15.5) % Plt Count (150-450) k/uL Neutrophils % % Lymphocytes % % Monocytes % % Eosinophils % % Basophils % % Neutrophils # (1.3-7.7) k/uL Lymphocytes # (1.0-4.8) k/uL Monocytes # (0-1.0) k/uL Eosinophils # (0-0.7) k/uL Basophils # (0-0.2) k/uL PT (9.0-12.0) sec INR (<1.2) APTT (22.0-30.0) sec Sodium (137-145) mmol/L Potassium (3.5-5.1) mmol/L Chloride (98-107) mmol/L Carbon Dioxide (22-30) mmol/L Anion Gap mmol/L BUN (9-20) mg/dL Creatinine (0.66-1.25) mg/dL Est GFR (CKD-EPI)AfAm (>60 ml/min/1.73 sqM) Est GFR (CKD-EPI)NonAf (>60 ml/min/1.73 sqM) Glucose (74-99) mg/dL Calcium (8.4-10.2) mg/dL Total Bilirubin (0.2-1.3) mg/dL AST (17-59) U/L ALT (4-49) U/L Alkaline Phosphatase (38-126) U/L Creatine Kinase (55-170) U/L Troponin I 0.201 H* (0.000-0.034) ng/mL Total Protein (6.3-8.2) g/dL Albumin (3.5-5.0) g/dL - NIH Stroke Scale 1a. Level of Consciousness: (0) alert 1b. LOC Questions: (0) answers correctly 1c. LOC Commands: (0) performs tasks correctly 2. Best Gaze: (0) normal 3. Visual: (1) partial hemianopia 4. Facial Palsy: (0) normal symmetrical movement 5a. Motor Arm Left: (0) no drift 5b. Motor Arm Right: (0) no drift 6a. Motor Leg Left: (0) no drift 6b. Motor Leg Right: (0) no drift 7. Limb Ataxia: (0) absent 8. Sensory: (0) normal 9. Best Language: (0) no aphasia 10. Dysarthria: (0) normal 11. Extinction/Inattention: (0) no abnormality - Medical Decision Making I did discuss findings with the patient and with his daughter was present pat ient will be admitted with neurological consultation. - EKG Data -: EKG Interpreted by Me EKG shows normal: sinus rhythm (Sinus rhythm first-degree AV block rate 65. Interval 226 QRS 70 QT since QTC 454/472 evidence of possible inferior infarct of undetermined age) Past Medical History Past Medical History: Coronary Artery Disease (CAD), Chest Pain / Angina, CVA/TIA, GERD/Reflux, Hyperlipidemia, Hypertension, Myocardial Infarction ([place]), Pneumonia Additional Past Medical History / Comment(s): hx. Arnold's esophagus, currently in cardiac rehab, has "vein problem" in rt leg. TIA 05/2019, See cardiology [facility] Last Myocardial Infarction Date:: 10/04/19 History of Any Multi-Drug Resistant Organisms: None Reported Past Surgical History: Coronary Bypass/CABG, Heart Catheterization, Hernia R epair, Pacemaker Additional Past Surgical History / Comment(s): CABG-triple bypass 30 yrs. ago. varicose vein stripping many years ago. heart cath (11/04/19) Past Anesthesia/Blood Transfusion Reactions: No Reported Reaction Type of Cardiac Device: Permanent Pacemaker Device Placement Date:: 2014 Past Psychological History: No Psychological Hx Reported Smoking Status: Never smoker Past Alcohol Use History: None Reported Past Drug Use History: None Reported - Past Family History Father Family Medical History: Myocardial Infarction ([place]) Additional Family Medical History / Comment(s): age 61 Mother Family Medical History: CVA/TIA Additional Family Medical History / Comment(s): at age 86 Course Vital Signs 11/05/19 11/05/19 20:13 20:35 Temperature 98.6 F Pulse Rate 62 57 L Respiratory 18 18 Rate Blood Pressure 126/82 105/56 O2 Sat by Pulse 97 97 Oximetry - Reevaluation(s) Reevaluation #1: 11/05/19 20:47 Reevaluation the patient reveals that he is improved. I did discuss the case with Dr. Mckeon who did evaluate part of the scan that was available at the time. Patient currently is not a TPA candidate. At this time he will be admitted to this facility with usual treatment and consultation by neurology. Reevaluation #2: 11/05/19 21:13 The patient's troponin was noted to be elevated. This is been a recent occu rrence per the patient and family. He's had no chest pain no shortness of breath. Dr. Robles in addition to neurology. will be consulted Critical Care Time Critical Care Time: Yes Total Critical Care Time: 37 Critical Care Time: 37 minutes of critical care time which includes initial presentation with hist ory physical labs x-rays multiple reevaluation the patient discussed with patient family regarding the findings discussed with Dr. Tavera, discussed with Dr. hook admission orders neck mentation the above. EKG shows no change from the previous admission. Disposition Clinical Impression: Transient cerebral ischemia, Elevated troponin Disposition: ADMITTED IP TO THIS HOSP Condition: Stable Referrals: Misael Foster DO [Primary Care Provider] - 1-2 days
[2019-11-05 20:34] LABS: Basophils # (A) 0.1 k/uL (0-0.2); Basophils % (A) 1 %; Eosinophils # (A) 0.4 k/uL (0-0.7); Eosinophils % (A) 4 %; HCT 42.6 % (39.0-53.0); HGB 13.9 gm/dL (13.0-17.5); Lymphocytes # (A) 2.6 k/uL (1.0-4.8); Lymphocytes % (A) 29 %; MCH 32.7 pg (25.0-35.0); MCHC 32.6 g/dL (31.0-37.0); MCV 100.2 fL (80.0-100.0); Mean Platelet Volume 7.1; Monocytes # (A) 1.1 k/uL (0-1.0); Monocytes % (A) 12 %; Neutrophils # (A) 4.7 k/uL (1.3-7.7); Neutrophils % (A) 51 %; Platelet Count 247 k/uL (150-450); RBC 4.25 m/uL (4.30-5.90); RDW 12.8 % (11.5-15.5); WBC 9.2 k/uL (3.8-10.6)
[2019-11-05 20:38] LABS: Albumin 4.3 g/dL (3.5-5.0); Calcium 9.7 mg/dL (8.4-10.2); Potassium 4.7 mmol/L (3.5-5.1); Total Bilirubin 0.5 mg/dL (0.2-1.3); Total Protein 7.1 g/dL (6.3-8.2)
[2019-11-05 20:42] LABS: Prothrombin Time 10.7 sec (9.0-12.0)
--- NOTE | 2019-11-05 20:48 | CT ---
EXAMINATION TYPE: CT brain wo con for TPA DATE OF EXAM: 11/05/2019 COMPARISON: CT brain 05/31/2019 HISTORY: neuro deficits, slurred speech, confusion. code stroke CT DLP: 1061.8 mGycm Automated exposure control for dose reduction was used. There is cerebral cortical atrophy. There is no mass effect nor midline shift. There is no sign of in tracranial hemorrhage. There is hypodensity in the periventricular white matter. The calvarium is int act. IMPRESSION: Cerebral atrophy and chronic small vessel ischemia. No acute intracranial abnormality. No significant change.
[2019-11-05] MEDS ORDERED: ATORVASTATIN 80 MG TAB PO STA (20:56)
[2019-11-05] MEDS ORDERED: ASPIRIN 81 MG PO STA (20:56)
--- NOTE | 2019-11-05 20:58 | CT ---
EXAMINATION TYPE: CT angio head neck DATE OF EXAM: 11/05/2019 COMPARISON: None HISTORY: neuro deficits, slurred speech, confusion CT DLP: 437.8 mGycm Automated exposure control for dose reduction was used. CONTRAST: Performed with IV Contrast, patient injected with 100 mL of Isovue 370. Images obtained from the aortic arch to the vertex of the brain with 3-D post processed images. FINDINGS: There is normal branching pattern of the great vessels on the aortic arch. There is bilateral contras t opacification of the vertebral arteries. There is arterial flow in the subclavian arteries bilatera lly. There is arterial flow in the common internal and external carotid arteries bilaterally. The car otid artery bifurcations appear widely patent. There is no evidence of carotid or vertebral artery an eurysm or dissection. There is minimal calcification at the carotid artery bifurcations without evide nce of stenosis. There is arterial flow in the vertebrobasilar artery system. There is arterial flow in the anterior m iddle and posterior cerebral arteries. There is no evidence of intracranial aneurysm or neovascularit y. There is no mass effect. There is normal contrast opacification of the venous sinuses. I see no ev idence of intracranial arterial stenosis. IMPRESSION: Negative CT angiogram of the neck. Negative CT angiogram of the brain.
[2019-11-05] MEDS ORDERED: NITROGLYCERIN SL TABS 0.4 MG TAB SUBLINGUAL PRN (21:17)
--- NOTE | 2019-11-05 21:31 | XR ---
EXAMINATION TYPE: XR chest 2V DATE OF EXAM: 11/05/2019 COMPARISON: 10/04/2019 HISTORY: Chest pain TECHNIQUE: 2 views FINDINGS: There is left axillary pacemaker. There are sternal wires. There are chest leads. There is slight blunting left costophrenic angle. Right lung is clear. There is no heart failure. Thoracic spi ne is intact. IMPRESSION: Minimal pleural reaction and interstitial density at the left lower lobe Not significantl y different than old exam. No heart failure.
[2019-11-05] MEDS: SODIUM CHLORIDE 0.9% 1,000 ML IV SCH (22:49)
[2019-11-06 03:15] LABS: Appearance,Urine Clear (Clear); Bilirubin,Urine Negative (Negative); Blood,Urine Negative (Negative); Color,Urine Light Yellow; Glucose,Urine (UA) Negative (Negative); Ketones,Urine Negative (Negative); Leukocyte Esterase,Urine Negative (Negative); Nitrite,Urine Negative (Negative); PH, Urine 6.5 (5.0-8.0); Protein,Urine Negative (Negative); Specific Gravity,Urine 1.024 (1.001-1.035); Urobilinogen,Urine <2.0 mg/dL (<2.0)
[2019-11-06 05:03] LABS: Cholesterol 115 mg/dL (<200); HDL Cholesterol 45 mg/dL (40-60); LDL Cholesterol,Calculated 50 mg/dL (0-99); Triglycerides 99 mg/dL (<150)
[2019-11-06] MEDS: MULTIVITAMINS, THERA 1 EACH TAB PO SCH (06:29)
[2019-11-06] MEDS: PANTOPRAZOLE 40 MG TABLET PO SCH (06:29)
[2019-11-06] MEDS: NAPROXEN 250 MG TAB PO SCH ×2 (06:29→17:59)
[2019-11-06] MEDS ORDERED: NON FORMULARY DRUG (Omega-3 Acid Ethyl Esters [Lovaza] 1 GM) PO SCH (07:30)
[2019-11-06] MEDS: ASPIRIN 325 MG TAB PO SCH (10:26)
[2019-11-06] MEDS: RANOLAZINE 500 MG TAB.ER.12H PO SCH ×2 (10:26→20:32)
[2019-11-06] MEDS: METOPROLOL SUCCINATE (ER) 50 MG TAB.ER.24H PO SCH (10:26)
[2019-11-06 12:46] VITALS: RESP 18
--- NOTE | 2019-11-06 13:02 | P.PN ---
Subjective This is Dr. Crystal dictating a consult on this patient The patient was interviewed and examined IMPRESSION / ASSESSMENT: CVA/TIA with speech difficulty confusion and left eye visual problems Post coronary angiography within the last 24 hours Known coronary artery disease status post coronary artery bypass grafting 36 years back Severe coronary artery disease with consideration for coronary stenting with Impala placement PLAN: Hold off on any coronary angiography and coronary intervention. High risk for stroke once again Increase atorvastatin to 80 mg daily Start Ranexa 500 mg twice daily for angina. Continue beta blockers and Imdur Neurology consult HPI Patient presented with speech difficulty confusion and left eye vision problems He had undergone coronary angiography. 4 hours back and we had had a discussion with the patient and the family regarding future management namely a staged coronary intervention using Impala since this was a high risk case versus medical treatment only However the patient came in with neurologic symptoms today and we have canceled the intervention at this point At this time the patient is alert and oriented his neurologic symptoms have resolved completely ROS: No fever chills or rigors, no cough, phlegm or expectoration, no nausea, vomiting or diarrhea, no hematuria, dysuria, no musculoskeletal complaints, no strokes or seizures, no skin lesions. EXAMINATION: Afebrile 96.8F, pulse rate in the 50s blood pressure 127/64 mmHg Breath sounds are clear no rhonchi no crackles Normal heart sounds normal S1 normal S2 Abdomen soft REVIEW OF LABS, ECG & MEDICAL DATA hemoglobin 13.9 Potassium 4.7 BUN 31 creatinine 1.08 Borderline troponins consistent with CVA LDL 50 Objective - Vital Signs Vital signs: Vital Signs Temp 96.8 F L 11/06/19 08:16 Pulse 54 L 11/06/19 08:16 Resp 18 11/06/19 08:16 BP 127/64 11/06/19 08:16 Pulse Ox 97 11/06/19 08:16 Intake & Output 11/05/19 11/06/19 11/06/19 18:59 06:59 18:59 Intake Total 600 240 Output Total 1050 150 Balance -450 90 Weight 71.3 kg Intake: Intake, IV Titration 600 Amount Sodium Chloride 0.9% 1, 600 000 ml @ 100 mls/hr IV . Q10H STA Rx#:[id number] Oral 240 Output: Urine 1050 150 Other: Voiding Method Urinal Urinal # Voids 1 1 - Labs CBC & Chem 7: 11/05/19 20:17 11/05/19 20:17 Labs: Abnormal Lab Results - Last 24 Hours (Table) 11/05/19 11/05/19 11/05/19 Range/Units 20:17 20:17 20:17 RBC 4.25 L (4.30-5.90) m/uL MCV 100.2 H (80.0-100.0) fL Monocytes # 1.1 H (0-1.0) k/uL Sodium 132 L (137-145) mmol/L Chloride 96 L (98-107) mmol/L BUN 31 H (9-20) mg/dL Troponin I 0.201 H* (0.000-0.034) ng/mL 11/05/19 11/06/19 Range/Units 22:43 01:02 RBC (4.30-5.90) m/uL MCV (80.0-100.0) fL Monocytes # (0-1.0) k/uL Sodium (137-145) mmol/L Chloride (98-107) mmol/L BUN (9-20) mg/dL Troponin I 0.183 H* 0.177 H* (0.000-0.034) ng/mL
--- NOTE | 2019-11-06 13:50 | P.HPIM ---
History of Present Illness This is a pleasant 89 years old male with past medical history of coronary artery disease, CVA/TIA, GERD, hypertension, hyperlipidemia, Arnold's esophagus, status post CABG. Presents because of speech difficulty and visual difficulty. Information was taken from the patient and daughter at bedside, yesterday at dinner he was complaining of from his left eye he couldn't see well, also his speech was slurred a little bit more difficult to articulate, also patient was confused and there was suspicion of stroke by family so they brought him to the hospital. However patient denies any weakness or numbness in his extremities. Currently patient is back to his baseline, his token without difficulty, no blurred vision, no headache or weakness Also last Sunday (the day before ) patient has cardiac cath for his coronary artery disease, Vital signs stable, labs including CBC and BMP and liver enzymes were unremarkable, troponin is elevated 0.2, 0.18, 0.17. Chest x-ray: No acute process however there is interstitial density of the left lower lobe, similar to previous. EKG showing sinus rhythm at [address] of the brain no acute process CTA of the brain showing negative CT angiogram of the neck and needed to sit in 2 g of the brain Review of Systems CONSTITUTIONAL: No fever, no malaise, no fatigue. HEENT: No recent visual problems or hearing problems. Denied any sore throat. CARDIOVASCULAR: No orthopnea, PND, no palpitations, no syncope. PULMONARY: No shortness of breath, no cough, no hemoptysis. GASTROINTESTINAL: No diarrhea, no nausea, no vomiting, no abdominal pain. Normoactive bowel sounds. NEUROLOGICAL: No headaches, no weakness, no numbness. HEMATOLOGICAL: Denies any bleeding or petechiae. GENITOURINARY: Denies any burning micturition, frequency, or urgency. MUSCULOSKELETAL/RHEUMATOLOGICAL: Denies any joint pain, swelling, or any muscle pain. ENDOCRINE: Denies any polyuria or polydipsia. Past Medical History Past Medical History: Coronary Artery Disease (CAD), Chest Pain / Angina, CVA/TIA, GERD/Reflux, Hyperlipidemia, Hypertension, Myocardial Infarction ([place]), Pneumonia Additional Past Medical History / Comment(s): hx. Arnold's esophagus, currently in cardiac rehab, has "vein problem" in rt leg. TIA 05/2019, See cardiology [facility] Last Myocardial Infarction Date:: 10/04/19 History of Any Multi-Drug Resistant Organisms: None Reported Past Surgical History: Coronary Bypass/CABG, Heart Catheterization, Hernia Repa ir, Pacemaker Additional Past Surgical History / Comment(s): CABG-triple bypass 30 yrs. ago. varicose vein stripping many years ago. heart cath (11/04/19) Past Anesthesia/Blood Transfusion Reactions: No Reported Reaction Type of Cardiac Device: Permanent Pacemaker Device Placement Date:: 2014 Past Psychological History: No Psychological Hx Reported Smoking Status: Never smoker Past Alcohol Use History: None Reported Past Drug Use History: None Reported - Past Family History Father Family Medical History: Myocardial Infarction ([place]) Additional Family Medical History / Comment(s): age 61 Mother Family Medical History: CVA/TIA Additional Family Medical History / Comment(s): at age 86 Medications and Allergies Home Medications Medication Instructions Recorded Confirmed Type Lansoprazole [Prevacid] 30 mg PO AC-BRKFST 03/03/14 11/05/19 History [place]-3 Acid Ethyl Esters [Lovaza] 1 gm PO AC-BID 03/03/14 11/05/19 History Valsartan/Hydrochlorothiazide 1 tab PO AC-SUPPER 03/03/14 11/05/19 History [Valsartan-Hctz 80-12.5 mg Tab] Garlic 1,000 mg PO AC-BRKFST 03/05/14 11/05/19 History Multivitamin [Men's Multi-Vitamin] 1 tab PO AC-BRKFST 03/05/14 11/05/19 History Cholecalciferol [Vitamin D3 (25 5,000 unit PO AC-SUPPER 10/04/19 11/05/19 History Mcg = 1000 Iu)] Metoprolol Succinate [Toprol XL] 50 mg PO DAILY 10/04/19 11/05/19 History Aspirin 81 mg PO DAILY #30 chew 10/08/19 11/05/19 Rx Atorvastatin [Lipitor] 40 mg PO AC-SUPPER 11/03/19 11/05/19 History Isosorbide Mononitrate ER [Imdur] 30 mg PO AC-LUNCH 11/03/19 11/05/19 History Naproxen 500 mg PO AC-BID 11/03/19 11/05/19 History Nitroglycerin Sl Tabs [Nitrostat] 0.4 mg SL Q5M PRN 11/05/19 11/05/19 History Allergies Allergy/AdvReac Type Severity Reaction Status Date / Time meperidine HCl [From Demerol] Allergy Severe Nausea Verified 11/05/19 20:55 neomycin [Neomycin] Allergy Rash/Hives Verified 11/05/19 20:55 amoxicillin [Amoxicillin] AdvReac Severe Nausea Verified 11/05/19 20:55 ,ABDOMINAL PAIN clarithromycin [From Biaxin] AdvReac Severe Nausea Verified 11/05/19 20:55 Physical Exam Vitals: Vital Signs Temp Pulse Pulse Resp BP BP Pulse Ox 11/06/19 08:16 96.8 F L 54 L 18 127/64 97 11/06/19 03:51 98.5 F 62 17 101/57 94 L 11/06/19 02:00 100/49 11/06/19 00:00 98.4 F 53 L 18 96/46 94 L 11/05/19 22:31 65 18 107/79 11/05/19 21:30 58 L 18 107/54 97 11/05/19 20:35 57 L 18 105/56 97 11/05/19 20:13 98.6 F 62 18 126/82 97 Intake and Output 11/05/19 11/06/19 11/06/19 22:59 06:59 14:59 Intake Total 600 240 Output Total 1050 150 Balance -450 90 Intake: Intake, IV Titration 600 Amount Sodium Chloride 0.9% 1, 600 000 ml @ 100 mls/hr IV . Q10H STA Rx#:[id number] Oral 240 Output: Urine 1050 150 Other: Voiding Method Urinal Urinal # Voids 1 1 Weight 72.575 kg 71.3 kg GENERAL: The patient is alert and oriented x3, not in any acute distress. Well developed, well nourished. HEENT: Pupils are round and equally reacting to light. EOMI. No scleral icterus. No conjunctival pallor. Normocephalic, atraumatic. No pharyngeal erythema. No thyromegaly. CARDIOVASCULAR: S1 and S2 present. No murmurs, rubs, or gallops. PULMONARY: Chest is clear to auscultation, no wheezing or crackles. ABDOMEN: Soft, nontender, nondistended, normoactive bowel sounds. No palpable organomegaly. MUSCULOSKELETAL: No joint swelling or deformity. EXTREMITIES: No cyanosis, clubbing, or pedal edema. NEUROLOGICAL: Gross neurological examination did not reveal any focal deficits. SKIN: No rashes. No petechiae Results CBC & Chem 7: 11/05/19 20:17 11/05/19 20:17 Labs: Abnormal Lab Results - Last 24 Hours (Table) 11/05/19 11/05/19 11/05/19 Range/Units 20:17 20:17 20:17 RBC 4.25 L (4.30-5.90) m/uL MCV 100.2 H (80.0-100.0) fL Monocytes # 1.1 H (0-1.0) k/uL Sodium 132 L (137-145) mmol/L Chloride 96 L (98-107) mmol/L BUN 31 H (9-20) mg/dL Troponin I 0.201 H* (0.000-0.034) ng/mL 11/05/19 11/06/19 Range/Units 22:43 01:02 RBC (4.30-5.90) m/uL MCV (80.0-100.0) fL Monocytes # (0-1.0) k/uL Sodium (137-145) mmol/L Chloride (98-107) mmol/L BUN (9-20) mg/dL Troponin I 0.183 H* 0.177 H* (0.000-0.034) ng/mL Thrombosis Risk Factor Assmnt - Choose All That Apply Each Risk Factor Represents 3 Points: Age 75 years or older Thrombosis Risk Factor Assessment Total Risk Factor Score: 3 Thrombosis Risk Factor Assessment Level: Moderate Risk Assessment and Plan Assessment: TIA elevated troponin, Post coronary angiography within the last 24 hours 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 Lawn Service Supervisor evaluated the patient and he'll follow the recommendation. Labs and medication were reviewed.. Continue same treatment. Continue with symptomatic treatment. Resume home medication. Monitor lytes and vitals. DVT and GI prophylaxis. Further recommendations of the clinical course of the patient DVT prophylaxis: Subcutaneous heparin GI Prophylaxis: Pepcid PT/OT: Pending Prognosis is guarded
[2019-11-06] MEDS: ISOSORBIDE MONONITRATE ER 30 MG TAB.ER.24H PO SCH (15:26)
--- NOTE | 2019-11-06 15:37 | P.CNNES ---
History of Present Illness Consult date: 11/06/19 Requesting physician: Anil Craig Reason for Consult: TIA History of Present Illness: Patient is a 89-year-old male, who had undergone cardiac catheterization on Sunday, 2 days ago (11/04/2019), as he was having some chest burning sensation for a month. He was found to have 99% blockage of 2 of the coronary arteries, no intervention performed. Patient was planned for a possible repeat cath and intervention on Sunday, which is tomorrow. However yesterday on Sunday, patient at 7 PM had an episode in which he started complaining of "eye glistening". He described it as a Crystal with reflecting light, but not flashing light. It involves the left eye and lasted for about 15 minutes. He put cold water and symptoms slowly resolved. At around 7:30 PM his daughter noticed that he was acting somewhat different. He did not sit on the spot that he always sits. He was asking questions, words were not in order, [place], sometimes not making sense. He could speak but couldn't follow commands well. This problem lasted for about 20 minutes. Patient's daughter drove him to the hospital. When he arrived, his blood pressure was 126/82, pulse is 62 temperature 98.6. All symptoms had resolved by the time he came to ER. At present he has no symptoms. Patient underwent CT head showed cerebral atrophy and chronic small vessel ischemia. No acute intracranial abnormality. CTA of head and neck normal. EKG shows sinus rhythm with first-degree AV block. Chest x-ray showed minimal pleural reaction and interstitial density at the left lower lobe. Not significantly different than old exam. Patient's blood tests shows elevated troponin 0.201. Sodium 132, potassium 4.7, PT/PTT normal. CBC normal. MCV elevated 100.2. Total cholesterol 1:15, LDL 50, HDL 45 and triglycerides 99. UA negative. CPK normal. Hepatic panel normal. Patient had a 2-D echo performed recently on 10/06/2019, which revealed paced rhythm. Borderline concentric LVH. EF is 50-55%. Left atrium is mildly dilated. Moderate TR. Patient denies any history of diabetes. He has hypertension. He is a pacemaker placed 4 years ago. Patient also has some balance issues for which he follows up with Dr. Valdez. Patient never smoked. Patient takes aspirin 81 mg daily. Review of Systems As above in detail. All other 14 point review of systems unremarkable. Past Medical History Past Medical History: Coronary Artery Disease (CAD), Chest Pain / Angina, CVA/TIA, GERD/Reflux, Hyperlipidemia, Hypertension, Myocardial Infarction ([place]), Pneumonia Additional Past Medical History / Comment(s): hx. Arnold's esophagus, currently in cardiac rehab, has "vein problem" in rt leg. TIA 05/2019, See cardiology [facility] Last Myocardial Infarction Date:: 10/04/19 History of Any Multi-Drug Resistant Organisms: None Reported Past Surgical History: Coronary Bypass/CABG, Heart Catheterization, Hernia Repair, Pacemaker Additional Past Surgical History / Comment(s): CABG-triple bypass 30 yrs. ago. varicose vein stripping many years ago. heart cath (11/04/19) Past Anesthesia/Blood Transfusion Reactions: No Reported Reaction Type of Cardiac Device: Permanent Pacemaker Device Placement Date:: 2014 Past Psychological History: No Psychological Hx Reported Smoking Status: Never smoker Past Alcohol Use History: None Reported Past Drug Use History: None Reported - Past Family History Father Family Medical History: Myocardial Infarction ([place]) Additional Family Medical History / Comment(s): age 61 Mother Family Medical History: CVA/TIA Additional Family Medical History / Comment(s): at age 86 Medications and Allergies Home Medications Medication Instructions Recorded Confirmed Type Lansoprazole [Prevacid] 30 mg PO AC-BRKFST 03/03/14 11/05/19 History [place]-3 Acid Ethyl Esters [Lovaza] 1 gm PO AC-BID 03/03/14 11/05/19 History Valsartan/Hydrochlorothiazide 1 tab PO AC-SUPPER 03/03/14 11/05/19 History [Valsartan-Hctz 80-12.5 mg Tab] Garlic 1,000 mg PO AC-BRKFST 03/05/14 11/05/19 History Multivitamin [Men's Multi-Vitamin] 1 tab PO AC-BRKFST 03/05/14 11/05/19 History Cholecalciferol [Vitamin D3 (25 5,000 unit PO AC-SUPPER 10/04/19 11/05/19 History Mcg = 1000 Iu)] Metoprolol Succinate [Toprol XL] 50 mg PO DAILY 10/04/19 11/05/19 History Aspirin 81 mg PO DAILY #30 chew 10/08/19 11/05/19 Rx Atorvastatin [Lipitor] 40 mg PO AC-SUPPER 11/03/19 11/05/19 History Isosorbide Mononitrate ER [Imdur] 30 mg PO AC-LUNCH 11/03/19 11/05/19 History Naproxen 500 mg PO AC-BID 11/03/19 11/05/19 History Nitroglycerin Sl Tabs [Nitrostat] 0.4 mg SL Q5M PRN 11/05/19 11/05/19 History Allergies Allergy/AdvReac Type Severity Reaction Status Date / Time meperidine HCl [From Demerol] Allergy Severe Nausea Verified 11/05/19 20:55 neomycin [Neomycin] Allergy Rash/Hives Verified 11/05/19 20:55 amoxicillin [Amoxicillin] AdvReac Severe Nausea Verified 11/05/19 20:55 ,ABDOMINAL PAIN clarithromycin [From Biaxin] AdvReac Severe Nausea Verified 11/05/19 20:55 Physical Examination - Vital Signs Vital Signs: Vital Signs Temp Pulse Pulse Resp BP BP Pulse Ox 11/06/19 03:51 98.5 F 62 17 101/57 94 L 11/06/19 02:00 100/49 11/06/19 00:00 98.4 F 53 L 18 96/46 94 L 11/05/19 22:31 65 18 107/79 11/05/19 21:30 58 L 18 107/54 97 11/05/19 20:35 57 L 18 105/56 97 11/05/19 20:13 98.6 F 62 18 126/82 97 Intake and Output 11/05/19 11/06/19 11/06/19 22:59 06:59 14:59 Intake Total 600 120 Output Total 1050 150 Balance -450 -30 Intake: Intake, IV Titration 600 Amount Sodium Chloride 0.9% 1, 600 000 ml @ 100 mls/hr IV . Q10H STA Rx#:[id number] Oral 120 Output: Urine 1050 150 Other: Voiding Method Urinal # Voids 1 1 Weight 72.575 kg 71.3 kg On examination patient is an elderly male, in no acute distress. Patient is alert and awake oriented to time place and person. Speech and language functions recent and remote memory normal. Attention and concentration fund of knowledge is adequate. On cranial examination pupils are round and reacting to light, visual orourke are full on confrontation, extraocular muscles are intact with no nystagmus. Face is symmetric, tongue protrudes the midline. Palatal elevation and sensation normal hearing is slightly decreased, shoulder shrug normal. On muscle strength testing there is no pronator drift and the strength is normal in arms and legs reflexes are diminished and plantars are questionable upgoing. Sensory touch is equal. No ataxia for [id number] testing. Tone and bulk of muscles normal. Gait deferred. There is no obvious bruit or murmur, S1 and S2 audible, peripheral pulses present. Results - Laboratory Findings CBC and BMP: 11/05/19 20:17 11/05/19 20:17 Abnormal Lab Findings: Abnormal Labs 11/05/19 11/05/19 11/05/19 20:17 20:17 20:17 RBC 4.25 L MCV 100.2 H Monocytes # 1.1 H Sodium 132 L Chloride 96 L BUN 31 H Troponin I 0.201 H* 11/05/19 11/06/19 22:43 01:02 RBC MCV Monocytes # Sodium Chloride BUN Troponin I 0.183 H* 0.177 H* Assessment and Plan Assessment: * Probable TIA manifesting with transient visual disturbance, mental confusion and speech difficulty. Symptoms resolved in about 30-45 minutes. At present patient is clinically back to baseline and examination is nonfocal. * Hypertension * Coronary artery disease * Pacemaker * Balance disorder. Plan: * Patient had a CTA of head and neck, which are normal. No large vessel occlusion or stenosis. Patient's TIA is of unclear etiology. Uncertain if was just spontaneous, or related to transient dislodging of a cholesterol plaque related to a recent cardiac catheterization. * Patient has been compliant on aspirin 81 mg. Dose apparently has been increased to 325 mg. May consider switching to Plavix, if okay with cardiology. * May consider MATTEO, if indicated per cardiology. * Patient's hemoglobin A1c 5.8 on 06/05/2019. No need to repeat it. * B12 is 724, cholesterol 115, and LDL 50, HDL 45. Continue statins.
[2019-11-06] MEDS ORDERED: CHOLECALCIFEROL 1,000 UNIT TAB PO SCH (17:30)
[2019-11-06] MEDS ORDERED: VALSARTAN 80 MG TAB PO SCH (17:30)
[2019-11-06] MEDS ORDERED: hydroCHLOROthiazide 12.5 MG CAP PO SCH (17:30)
[2019-11-06] MEDS ORDERED: ATORVASTATIN 40 MG TAB PO SCH (17:30)
[2019-11-06] MEDS ORDERED: ATORVASTATIN 80 MG TAB PO SCH (21:00)
[2019-11-07] MEDS: SODIUM CHLORIDE 0.9% 1,000 ML IV SCH (01:37)
[2019-11-07] MEDS: MULTIVITAMINS, THERA 1 EACH TAB PO SCH (06:56)
[2019-11-07] MEDS: PANTOPRAZOLE 40 MG TABLET PO SCH (06:56)
[2019-11-07] MEDS: NAPROXEN 250 MG TAB PO SCH (06:56)
[2019-11-07] MEDS: RANOLAZINE 500 MG TAB.ER.12H PO SCH (09:01)
[2019-11-07] MEDS: METOPROLOL SUCCINATE (ER) 50 MG TAB.ER.24H PO SCH (09:01)
[2019-11-07] MEDS: ASPIRIN 325 MG TAB PO SCH (09:01)
[2019-11-07 09:03] VITALS: BP 139/62; PULSE 59; TEMP 97.8
--- NOTE | 2019-11-07 10:50 | P.PN ---
Subjective This is a pleasant 89 years old male with past medical history of coronary artery disease, CVA/TIA, GERD, hypertension, hyperlipidemia, Arnold's es ophagus, status post CABG. Presents because of speech difficulty and visual difficulty. Information was taken from the patient and daughter at bedside, yesterday at dinner he was complaining of from his left eye he couldn't see well, also his speech was slurred a little bit more difficult to articulate, also patient was confused and there was suspicion of stroke by family so they brought him to the hospital. However patient denies any weakness or numbness in his extremities. Currently patient is back to his baseline, his token without difficulty, no blurred vision, no headache or weakness Also last Sunday (the day before ) patient has cardiac cath for his coronary artery disease, Vital signs stable, labs including CBC and BMP and liver enzymes were unremarkable, troponin is elevated 0.2, 0.18, 0.17. Chest x-ray: No acute process however there is interstitial density of the left lower lobe, similar to previous. EKG showing sinus rhythm at [address] of the brain no acute process CTA of the brain showing negative CT angiogram of the neck and needed to sit in 2 g of the brain 11/07/2019 Patient is back to his usual state, no more I problem, no slurred speech no confusion. Is fully awake and oriented. No other new complaints other than some heartburn Vitals are stable. UA is negative. Patient is been evaluated by cardiology and neurology service. Patient home dose aspirin increased from H1 up to 325 mg, however neurology would recommend to consider changing aspirin to Plavix, also may consider MATTEO, we'll await cardiology input regarding this Objective - Vital Signs Vital signs: Vital Signs Temp 97.8 F 11/07/19 08:00 Pulse 59 L 11/07/19 08:00 Resp 18 11/07/19 08:00 BP 139/62 11/07/19 08:00 Pulse Ox 98 11/07/19 08:00 Intake & Output 11/06/19 11/07/19 11/07/19 18:59 06:59 18:59 Intake Total 240 Output Total 150 Balance 90 Weight 71 kg Intake: Oral 240 Output: Urine 150 Other: Voiding Method Urinal Urinal # Voids 1 2 - Exam GENERAL: The patient is alert and oriented x3, not in any acute distress. Well developed, well nourished. HEENT: Pupils are round and equally reacting to light. EOMI. No scleral icterus. No conjunctival pallor. Normocephalic, atraumatic. No pharyngeal erythema. No thyromegaly. CARDIOVASCULAR: S1 and S2 present. No murmurs, rubs, or gallops. PULMONARY: Chest is clear to auscultation, no wheezing or crackles. ABDOMEN: Soft, nontender, nondistended, normoactive bowel sounds. No palpable organomegaly. MUSCULOSKELETAL: No joint swelling or deformity. EXTREMITIES: No cyanosis, clubbing, or pedal edema. NEUROLOGICAL: Gross neurological examination did not reveal any focal deficits. SKIN: No rashes. no petechiae. 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 University Counselor evaluated the patient and he'll follow the recommendation. Labs and medication were reviewed.. Continue same treatment. Continue with symptomatic treatment. Resume home medication. Monitor lytes and vitals. DVT and GI prophylaxis. Further recommendations of the clinical course of the patient DVT prophylaxis: Subcutaneous heparin GI Prophylaxis: Pepcid PT/OT: Pending Prognosis is guarded
[2019-11-07] MEDS: ISOSORBIDE MONONITRATE ER 30 MG TAB.ER.24H PO SCH (12:01)
--- NOTE | 2019-11-07 16:24 | P.PN ---
Subjective This is Erica Albrecht PA-C dictating a progress note on this patient The patient was interviewed and examined by me as well as by Dr. Crystal Case discussed with Dr. Crystal and he agrees with the plan of care HPI/interval history Patient is an 89-year-old male with a history of known CAD status post CABG, recent coronary angiogram showing severe coronary artery disease, dyslipidemia who presented with strokelike symptoms. Yesterday we started him on Ranexa 500 mg twice daily for his recurrent angina. Patient seen and examined sitting up in the chair. His neurologic symptoms have completely resolved. He has been up walking around. According to his daughter he is still little off balance. He has not had any dizziness or falls. No blurry vision. No chest pain at the time of my examination. EXAMINATION Patient is afebrile, pulse in the high 50s, respirations 18, blood pressure 139/62, oxygen saturation 98% on room air Patient seen and examined sitting in the chair in no acute distress Lungs are clear to auscultation bilaterally no wheezing rhonchi or crackles Heart is regular, no audible murmurs Extremities warm, trace edema REVIEW OF LABS, ECG No new labs today IMPRESSION / ASSESSMENT: #1 symptoms of visual disturbance, speech difficulty, and confusion secondary to TIA likely related to recent cardiac catheterization #2 known CAD status post CABG with recent coronary angiogram showing severe coronary artery disease, previously considering staged intervention with impella support, holding off at this time #3 stable angina #4 elevated troponins consistent with recent TIA #5 dyslipidemia PLAN: Dr. Crystal had a detailed discussion again with the patient and his daughter who is at the bedside Patient would be at high risk for stroke if we were to proceed with staged coronary intervention that was previously being considered He has been started on Ranexa for symptomatic treatment Continue beta blockers and Imdur Continue atorvastatin 80 mg daily No indication for MATTEO at this time switched to low-dose aspirin plus Plavix Objective - Vital Signs Vital signs: Vital Signs Temp 97.8 F 11/07/19 08:00 Pulse 59 L 11/07/19 08:00 Resp 18 11/07/19 08:00 BP 139/62 11/07/19 08:00 Pulse Ox 98 11/07/19 08:00 Intake & Output 07/23/20 07/24/20 07/24/20 18:59 06:59 18:59 Intake Total 240 320 Output Total 150 Balance 90 320 Weight 71 kg Intake: Oral 240 320 Output: Urine 150 Other: Voiding Method Urinal Urinal # Voids 1 2 1 # Bowel Movements 0 - Labs CBC & Chem 7: 11/05/19 20:17 11/05/19 20:17
[2019-11-07] MEDS ORDERED: CLOPIDOGREL 75 MG TAB PO SCH (16:30)
== END 2019-11-07 17:08 | disposition home or self-care (01) | DRG 69 ==
LOC: EC 20:04 → 3SCARD 21:19
PROVIDERS: ADMIT Internal Medicine; ATTEND Internal Medicine
DX: G45.9 Transient cerebral ischemic attack, unspecified (principal); E78.5 Hyperlipidemia, unspecified; I10 Essential (primary) hypertension; I25.118 Atherosclerotic heart disease of native coronary artery with other forms of angina pectoris; I25.2 Old myocardial infarction; I44.0 Atrioventricular block, first degree; K22.70 Barrett's esophagus without dysplasia; Z79.82 Long term (current) use of aspirin; Z79.899 Other long term (current) drug therapy; H54.62 Unqualified visual loss, left eye, normal vision right eye; R47.81 Slurred speech; R79.89 Other specified abnormal findings of blood chemistry; I07.1 Rheumatic tricuspid insufficiency; Z82.49 Family history of ischemic heart disease and other diseases of the circulatory system; Z86.73 Personal history of transient ischemic attack (TIA), and cerebral infarction without residual deficits; Z95.1 Presence of aortocoronary bypass graft; Z87.01 Personal history of pneumonia (recurrent); Z88.6 Allergy status to analgesic agent; Z88.1 Allergy status to other antibiotic agents; Z88.0 Allergy status to penicillin; Z11.59 Encounter for screening for other viral diseases
CPT/HCPCS: 36415; 70450; 70496; 70498; 71046; 80053; 80061; 81003; 82550; 84484; 85025; 85610; 85730; 93005; 96360; 99291

== ENCOUNTER → 2020-01-07 | Outpatient (CLI) | payer MEDICARE ==
--- NOTE | 2020-01-08 09:01 | CT ---
EXAMINATION TYPE: CT cervical spine wo con DATE OF EXAM: 01/07/2020 COMPARISON: None HISTORY: Unsteady gait for [address] DLP: 418 mGycm CONTRAST: None CT of the cervical spine is performed in the axial plane at 2 mm thick sections. Reconstructed image s in the coronal, and sagittal plane are reviewed on the computer. No acute fractures are evident. Vertebral body alignment is normal. There is loss of disc height throughout the cervical spine appears greatest at C5-6 C6-7. Disc space narrowing is also noted C3-4 C4-5 posteriorly. Vertebral body heights are preserved. No spinal canal stenosis is evident Uncovertebral joint hypertrophy is contributing to foraminal narrowing C6-7 bilaterally and to a mild er degree C5-6 bilaterally some right C4-5 foraminal narrowing is also present. IMPRESSIONS: 1. Degenerative disc changes and foraminal narrowing discussed above.
== END | disposition home or self-care (01) ==
LOC: RADCTMAIN 09:05
PROVIDERS: ATTEND Psychiatry & Neurology Neurology
DX: M48.02 Spinal stenosis, cervical region (principal); M47.892 Other spondylosis, cervical region; R27.0 Ataxia, unspecified
CPT/HCPCS: 72125

== ENCOUNTER 2020-05-07 06:34 | Inpatient (IN) | payer MEDICARE ==
[2020-05-06 09:59] VITALS: BMI 22.0
[~2020-05-07 06:34] MED LIST changes: -ASPIRIN 325 MG TAB PO ONE; +ASPIRIN 325 MG TAB PO STA; -ATORVASTATIN 80 MG TAB PO ONE; +ATORVASTATIN 80 MG TAB PO STA; +HEPARIN SODIUM,PORCINE 10,000 UNIT in SODIUM CHLORIDE 0.9% 1,000 ML IRRIGATION PRN; +HEPARIN SODIUM,PORCINE 2,500 UNIT in SODIUM CHLORIDE 0.9% 250 ML IRRIGATION PRN
[2020-05-07] MEDS ORDERED: ASPIRIN 81 MG ONE (06:55)
[2020-05-07 07:22] LABS: Basophils # (A) 0.1 k/uL (0-0.2); Basophils % (A) 1 %; Eosinophils # (A) 0.3 k/uL (0-0.7); Eosinophils % (A) 3 %; HCT 41.2 % (39.0-53.0); HGB 13.9 gm/dL (13.0-17.5); Lymphocytes # (A) 2.3 k/uL (1.0-4.8); Lymphocytes % (A) 25 %; MCH 31.9 pg (25.0-35.0); MCHC 33.7 g/dL (31.0-37.0); MCV 94.7 fL (80.0-100.0); Mean Platelet Volume 7.1; Monocytes # (A) 0.9 k/uL (0-1.0); Monocytes % (A) 9 %; Neutrophils # (A) 5.5 k/uL (1.3-7.7); Neutrophils % (A) 59 %; Platelet Count 221 k/uL (150-450); RBC 4.34 m/uL (4.30-5.90); RDW 12.7 % (11.5-15.5); WBC 9.4 k/uL (3.8-10.6)
[2020-05-07] MEDS ORDERED: LIDOCAINE 1% INJ 10MG/ML (20 ML MDV) ONE ×2 (07:23→08:00)
[2020-05-07] MEDS ORDERED: HEPARIN SODIUM 1,000 UN/ML (10ML VL) ONE (07:24)
[2020-05-07 07:29] LABS: Calcium 9.7 mg/dL (8.4-10.2); Potassium 4.4 mmol/L (3.5-5.1)
[2020-05-07] MEDS ORDERED: MIDAZOLAM 2 MG/2 ML VIAL IV ONE ×2 (07:52→10:04)
[2020-05-07] MEDS ORDERED: LIDOCAINE 1% INJ 10MG/ML (20 ML MDV) SQ ONE (07:57)
[2020-05-07] MEDS ORDERED: FLUMAZENIL 0.1 MG/ML 5 ML VIAL IVP ONE ×2 (08:07→08:10)
[2020-05-07] MEDS ORDERED: HEPARIN SODIUM 1,000 UN/ML (10ML VL) IV ONE (08:09)
[2020-05-07] MEDS ORDERED: niCARdipine 25 MG/10 ML VIAL ONE (08:15)
[2020-05-07] MEDS ORDERED: fentaNYL (PF) 50 MCG/ML 2 ML AMP ONE (08:31)
[2020-05-07] MEDS: fentaNYL (PF) 50 MCG/ML 2 ML AMP IV ONE ×4 (08:32→09:27)
[2020-05-07] MEDS ORDERED: IOPAMIDOL-370 125ML BTL INJ ONE (09:44)
[2020-05-07] MEDS ORDERED: ONDANSETRON 4 MG/2 ML VIAL ONE (10:00)
[2020-05-07] MEDS ORDERED: ONDANSETRON 4 MG/2 ML VIAL IVP ONE (10:04)
[2020-05-07] MEDS ORDERED: IOPAMIDOL-370 100ML BTL INJ ONE (10:16)
[2020-05-07] MEDS ORDERED: CLOPIDOGREL 75 MG TAB ONE (10:20)
[2020-05-07] MEDS ORDERED: CLOPIDOGREL 75 MG TAB PO ONE (10:22)
[2020-05-07] MEDS ORDERED: PROTAMINE SULFATE 10 MG/ML 5 ML VIAL IV ONE ×2 (10:28→10:31)
[2020-05-07] MEDS ORDERED: NITROGLYCERIN SL TABS 0.4 MG TAB SUBLINGUAL PRN (10:48)
[2020-05-07] MEDS ORDERED: ZOLPIDEM 5 MG TAB PO PRN (10:48)
[2020-05-07] MEDS ORDERED: ATROPINE SULFATE 0.1 MG/ML 10ML SYRINGE IV PRN (10:48)
[2020-05-07] MEDS ORDERED: RX INFO: IV CONTRAST WAS GIVEN 1 EACH MISC MISCELLANE PRN (10:48)
[2020-05-07] MEDS ORDERED: MAG HYDROX/AL HYDROX/SIMETH 30 ML CUP PO PRN (10:48)
[2020-05-07] MEDS ORDERED: SODIUM CHLORIDE 0.9% 1,000 ML IV SCH (11:00)
[2020-05-07 11:13] LABS: Glucose,Whole Blood 93 mg/dL (75-99)
[2020-05-07] MEDS ORDERED: fentaNYL (PF) 50 MCG/ML 2 ML AMP IVP PRN (12:44)
--- NOTE | 2020-05-07 12:58 | LTR ---
May 07, 2020 Re: Prince Snyder Dear Dr. Foster: MrClifton Snyder underwent successful balloon angioplasty of the left circumflex with good angiographic results and without any complication. Thank you for allowing me to participate in his care and please do not hesitate to call if you have any questions or concerns. Sincerely, Mason Robles MD MMANTONINA / ALVARO: [id number] /
--- NOTE | 2020-05-07 13:13 | PTCA ---
PERCUTANEOUSTRANS CORORONARY ANGIOGRAPHY PERCUTANEOUS CORONARY INTERVENTION: DATE OF SERVICE: May 07, 2020 PERFORMING PHYSICIAN: Mason Robles MD. PROCEDURE PERFORMED: 1. Successful placement of Impella in the left ventricle from right groin approach. 2. Atherectomy of the left main and left circumflex using the orbital atherectomy device from [facility]. 3. Successful stenting of the distal left main and proximal left circumflex using 3.5 x 23 mm Xience drug-eluting stent with an excellent angiographic result and reduction of stenosis from 100% to 0%. 4. Right common femoral artery angiogram. INDICATION: This is an 89-year-old gentleman who sees Dr. Crystal as an outpatient with known history of coronary artery disease and prior coronary artery bypass grafting, who was admitted to the hospital in October of 2019 with acute coronary syndrome and that was complicated by stroke. At that point, he underwent a heart catheterization and was found to have critical disease involving a graft to the diagonal and also critical disease involving a calcified unprotected left circumflex. Medical treatment was advised giving his age. Because the patient continues to have shortness of breath with exertion and because he continues to be symptomatic on maximized medical treatment, he was brought to undergo percutaneous coronary intervention. APPROACH: Right common femoral artery and left common femoral artery. COMPLICATION: None. LEVEL OF SEDATION: Moderate with sedation length of about 2 hours. PROCEDURE DESCRIPTION: After obtaining an informed consent, the patient was brought to the cardiac laborer stores. The right and left common femoral artery was cannulated using micropuncture technique, the micropuncture wire passed easily then I placed a 6-Croatian sheath in the right and left common femoral arteries. I did selective right common femoral artery angiogram which revealed a good segment of the right common femoral artery can handle a 13-Croatian sheath. I did after that upgraded my 6-Croatian sheath into 13-Croatian sheath using an 0.035 stiff Glidewire and using an 8 and 10-Croatian dilator. Subsequently I placed a 13-Croatian sheath 11 cm at the right common femoral artery planning to place an Impella. That was performed under fluoroscopic guidance. At that point, anticoagulation was initiated using heparin and the patient was given a weight based heparin. Please note that ACT monitoring was performed throughout the procedure. After that, I placed an Impella in the left ventricle. Initially I crossed the left ventricle using a 0.035 regular J-wire with pigtail catheter. Subsequently I placed an 0.018 wire in the pigtail and pulled the pigtail out. Then I advanced the Impella over the 0.018 wire. The Impella subsequently was turned on. After that, I did engage the left main using an XP35 guide. Initially, I attempted wiring the left circumflex using a Whisper wire, but finally I was able to wire it using a Whisper wire with the backup support of SuperCross catheter. Attempting advancing 1 mm balloon was successful and after that I attempted advancing 1.5 mm balloon and that was successful. Attempting advancing a 2.0 balloon was unsuccessful and I have to place a emily wire which was another Whisper wire. With the 2.0 balloon, I had difficulties ballooning the proximal distal left main and proximal left circumflex and because of that I decided to go ahead and do atherectomy. I did exchange my long Whisper wire into a long ViperWire. Subsequently, I did atherectomy of the distal left main and proximal left circumflex using the orbital atherectomy device from [employer]. The atherectomy was performed twice under lowest speed. After that I did balloon angioplasty using 3.0 and 3.5 mm balloon. After that I was able to advance a 3.5 x 23 mm Xience drug-eluting stent where the stent was positioned under fluoroscopy guidance and deployed under 16 atmospheres for 20 seconds. The following angiogram showed excellent angiographic results and the procedure was completed without any complication. Subsequently, I did pull the 13-Croatian sheath and deployed the Perclose in the right groin. The left groin sheath was left to have a manual pullback. The procedure was completed without any complication. POSTPROCEDURE MANAGEMENT: 1. Dual anti-platelet therapy. 2. Risk factor modifications. 3. Follow up with the patient. MMODL / IJN: [id number] /
[2020-05-07] MEDS ORDERED: ONDANSETRON 4 MG/2 ML VIAL IVP PRN (13:18)
[2020-05-07] MEDS ORDERED: lisinopriL 10 MG TAB PO SCH (18:30)
[2020-05-07] MEDS: ATORVASTATIN 80 MG TAB PO SCH (22:16)
[2020-05-07] MEDS: METOPROLOL SUCCINATE (ER) 25 MG TAB.ER.24H PO SCH (22:16)
[2020-05-07] MEDS: NAPROXEN 250 MG TAB PO SCH (22:28)
[2020-05-08 04:53] LABS: Basophils % (A) 0 %; Eosinophils # (A) 0.2 k/uL (0-0.7); Eosinophils % (A) 2 %; HGB 12.2 gm/dL (13.0-17.5); Lymphocytes # (A) 1.7 k/uL (1.0-4.8); Lymphocytes % (A) 16 %; MCH 30.8 pg (25.0-35.0); MCHC 32.1 g/dL (31.0-37.0); Mean Platelet Volume 7.4; Monocytes # (A) 1.1 k/uL (0-1.0); Monocytes % (A) 10 %; Neutrophils # (A) 7.6 k/uL (1.3-7.7); Neutrophils % (A) 69 %; Platelet Count 197 k/uL (150-450); RBC 3.96 m/uL (4.30-5.90); RDW 13.2 % (11.5-15.5); WBC 10.9 k/uL (3.8-10.6)
[2020-05-08 05:08] LABS: Calcium 9.2 mg/dL (8.4-10.2)
[2020-05-08 05:10] LABS: Potassium 4.8 mmol/L (3.5-5.1)
[2020-05-08] MEDS: NAPROXEN 250 MG TAB PO SCH ×2 (08:27→21:17)
[2020-05-08] MEDS: METOPROLOL SUCCINATE (ER) 25 MG TAB.ER.24H PO SCH (08:35)
[2020-05-08] MEDS: SPIRONOLACTONE 25 MG TAB PO SCH (08:36)
[2020-05-08] MEDS: ASPIRIN 81 MG PO SCH (08:36)
[2020-05-08] MEDS: ASCORBIC ACID 500 MG TAB PO SCH (08:36)
[2020-05-08] MEDS: CHOLECALCIFEROL 25 MCG (1000 IU) TABLET PO SCH (08:36)
[2020-05-08] MEDS: CLOPIDOGREL 75 MG TAB PO SCH (08:36)
[2020-05-08] MEDS: PANTOPRAZOLE 40 MG TABLET PO SCH (08:36)
[2020-05-08] MEDS: MULTIVITAMINS, THERA 1 EACH TAB PO SCH (08:43)
[2020-05-08] MEDS ORDERED: ISOSORBIDE MONONITRATE ER 30 MG TAB.ER.24H PO SCH (09:00)
[2020-05-08] MEDS ORDERED: FUROSEMIDE 40 MG TAB PO SCH (09:00)
[2020-05-08] MEDS ORDERED: SODIUM CHLORIDE 0.9% 500 ML 200 ML IV ONE (11:50)
[2020-05-08] MEDS ORDERED: SODIUM CHLORIDE 0.9% 500 ML 150 ML IV ONE (15:34)
--- NOTE | 2020-05-08 16:56 | ECHOF ---
Referral Reason:R/O pericardial effusion MEASUREMENTS -------- HEIGHT: 165.1 cm WEIGHT: 66.7 kg BP: 147/ IVSd: 0.8 cm (0.6 - 1.1) LVIDd: 4.2 cm (3.9 - 5.3) LVPWd: 1.2 cm (0.6 - 1.1) IVSs: 1.0 cm LVIDs: 4.1 cm LVPWs: 1.5 cm LAESV Index (A-L): 43.13 ml/m Ao Diam: 3.4 cm (2.0 - 3.7) AV Cusp: 1.6 cm (1.5 - 2.6) MV EXCURSION: 19.132 mm (> 18.000) MV EF SLOPE: 56 mm/s (70 - 150) EPSS: 2.0 cm MV E Cedric: 0.48 m/s MV DecT: 325 ms MV A Cedric: 0.88 m/s MV E/A Ratio: 0.55 RAP: 5.00 mmHg RVSP: 28.15 mmHg FINDINGS -------- Paced rhythm. This was a techncally difficult study with suboptimal views, , Definity utilized for enhancement of i mages. The left ventricular size is normal. Left ventricular wall thickness is normal. Overall left vent ricular systolic function is moderate-severely impaired with, an EF between 30 - 35 %Diifficult to as sess segmental wall motion defects. Seems to be generalized hypokinesia The right ventricle is normal in size. LA is severely dilated >40 ml/m2 The right atrial size is normal. There is mild aortic valve sclerosis. Mild mitral regurgitation is present. Mild tricuspid regurgitation present. Right ventricular systolic pressure is normal at < 35 mmHg. There is no pulmonic regurgitation present. The aortic root size is normal. There is no pericardial effusion. CONCLUSIONS -------- 1. This was a techncally difficult study with suboptimal views, , Definity utilized for enhancement o f images. 2. The left ventricular size is normal. 3. Left ventricular wall thickness is normal. 4. Overall left ventricular systolic function is moderate-severely impaired with, an EF between 30 - 35 %. 5. The right ventricle is normal in size. 6. LA is severely dilated >40 ml/m2 7. The right atrial size is normal. 8. There is mild aortic valve sclerosis. 9. Mild mitral regurgitation is present. 10. Mild tricuspid regurgitation present. 11. There is no pulmonic regurgitation present. 12. The aortic root size is normal. 13. There is no pericardial effusion. [employer]ORTER CLERK: Blossom Juan RDCS
[2020-05-08 18:02] LABS: HCT 37.4 % (39.0-53.0); HGB 12.8 gm/dL (13.0-17.5); MCH 33.1 pg (25.0-35.0); MCHC 34.3 g/dL (31.0-37.0); MCV 96.6 fL (80.0-100.0); Platelet Count 180 k/uL (150-450); RBC 3.87 m/uL (4.30-5.90); RDW 12.9 % (11.5-15.5); WBC 9.5 k/uL (3.8-10.6)
[2020-05-08] MEDS: ATORVASTATIN 80 MG TAB PO SCH (21:26)
[2020-05-09 04:01] LABS: Basophils % (A) 0 %; Eosinophils # (A) 0.3 k/uL (0-0.7); Eosinophils % (A) 3 %; HCT 37.6 % (39.0-53.0); HGB 12.1 gm/dL (13.0-17.5); Lymphocytes % (A) 20 %; MCH 30.9 pg (25.0-35.0); MCHC 32.2 g/dL (31.0-37.0); MCV 95.8 fL (80.0-100.0); Mean Platelet Volume 7.2; Monocytes % (A) 10 %; Neutrophils # (A) 6.1 k/uL (1.3-7.7); Neutrophils % (A) 62 %; Platelet Count 194 k/uL (150-450); RBC 3.92 m/uL (4.30-5.90); RDW 13.1 % (11.5-15.5); WBC 9.9 k/uL (3.8-10.6)
[2020-05-09 04:15] LABS: Calcium 9.2 mg/dL (8.4-10.2); Potassium 4.7 mmol/L (3.5-5.1)
[2020-05-09] MEDS: PANTOPRAZOLE 40 MG TABLET PO SCH (07:05)
[2020-05-09] MEDS: MULTIVITAMINS, THERA 1 EACH TAB PO SCH (07:05)
[2020-05-09] MEDS: ASCORBIC ACID 500 MG TAB PO SCH (08:00)
[2020-05-09] MEDS: NAPROXEN 250 MG TAB PO SCH (08:00)
[2020-05-09] MEDS: SPIRONOLACTONE 25 MG TAB PO SCH (08:00)
[2020-05-09] MEDS: CLOPIDOGREL 75 MG TAB PO SCH (08:00)
[2020-05-09] MEDS: CHOLECALCIFEROL 25 MCG (1000 IU) TABLET PO SCH (08:00)
[2020-05-09] MEDS: ASPIRIN 81 MG PO SCH (08:00)
[2020-05-09 09:18] VITALS: TEMP 97.1
[2020-05-09 11:03] VITALS: BP 85/57
--- NOTE | 2020-05-09 12:05 | PN ---
PROGRESS NOTE DATE OF SERVICE: May 08, 2020. BRIEF HISTORY: This is a very pleasant 89-year-old gentleman who sees Dr. Crystal as an outpatient who had acute coronary syndrome in October of 2019, complicated by stroke. The patient, at that point, underwent a heart catheterization and that revealed severe triple-vessel coronary artery disease with critical disease involving the graft to the diagonal and also occluded left circumflex which was a dominant left circumflex and unprotected. Because of the stroke and his age at that point, we treated him medically. Because he continues to be symptomatic, Dr. Crystal recommended proceeding with coronary revascularization. On May 06, the patient underwent successful stenting of occluded and very calcified and tortuous left circumflex coronary artery with adjunctive use of Impella. The procedure itself was very complex and very long. The patient was seen as a followup on May 08 in the ICU and because his pressure was marginally low and his heart rate was also marginally low, we decided to just monitor the patient for additional 24 hours. At that point, I am going to hold his blood pressure medications and continue dual anti- platelet therapy along with high intensity statin and the patient will be seen tomorrow for possible discharge home. MMODL / IJN: [id number] /
[2020-05-09 12:18] VITALS: PULSE 69; RESP 15
--- NOTE | 2020-05-09 13:38 | DS ---
DISCHARGE SUMMARY DATE OF SERVICE: 05/09/2020 BRIEF HISTORY: This is a very pleasant 89-year-old gentleman who underwent successful crushing of chronic total occlusion of occluded and very calcified and tortuous left circumflex with adjunctive use of atherectomy and Impella. The patient was kept overnight for an additional 24 hours of monitoring because his blood pressure was marginally low. The patient was seen today. He is feeling better. He is not weak anymore. He is up and around walking in the hallway. The patient is going to be discharged on dual anti-platelet therapy along with high intensity statin. We are going to hold any blood pressure medications on him at this point until he sees Dr. Crystal in the office. MMODL / IJN: [id number] /
== END 2020-05-09 12:21 | disposition home or self-care (01) | DRG 215 ==
LOC: 2ORMAIN 06:34 → EDSTATUS 07:30 → 2SICU 11:06
PROVIDERS: ADMIT Internal Medicine Interventional Cardiology; ATTEND Internal Medicine Interventional Cardiology
PROC: 02HA3RZ Insertion of Short-term External Heart Assist System into Heart, Percutaneous Approach (ICD-10-PCS; principal; 2020-05-07 07:30)
PROC: 5A0221D Assistance with Cardiac Output using Impeller Pump, Continuous (ICD-10-PCS; principal; 2020-05-07 07:30)
PROC: 027035Z Dilation of Coronary Artery, One Artery with Two Drug-eluting Intraluminal Devices, Percutaneous Approach (ICD-10-PCS; principal; 2020-05-07 07:30)
PROC: X2C1361 Extirpation of Matter from Coronary Artery, Two Arteries using Orbital Atherectomy Technology, Percutaneous Approach, New Technology Group 1 (ICD-10-PCS; principal; 2020-05-07 07:30)
PROC: B41F1ZZ Fluoroscopy of Right Lower Extremity Arteries using Low Osmolar Contrast (ICD-10-PCS; principal; 2020-05-07 07:30)
PROC: 027135Z Dilation of Coronary Artery, Two Arteries with Two Drug-eluting Intraluminal Devices, Percutaneous Approach (ICD-10-PCS; principal; 2020-05-07 07:30)
DX: I25.119 Atherosclerotic heart disease of native coronary artery with unspecified angina pectoris (principal); I25.82 Chronic total occlusion of coronary artery; I10 Essential (primary) hypertension; Z95.1 Presence of aortocoronary bypass graft; I25.5 Ischemic cardiomyopathy; Z95.0 Presence of cardiac pacemaker; E78.5 Hyperlipidemia, unspecified; Z82.49 Family history of ischemic heart disease and other diseases of the circulatory system; R03.1 Nonspecific low blood-pressure reading; Z88.1 Allergy status to other antibiotic agents; Z88.0 Allergy status to penicillin; Z88.8 Allergy status to other drugs, medicaments and biological substances; Z79.02 Long term (current) use of antithrombotics/antiplatelets; Z79.82 Long term (current) use of aspirin; Z79.899 Other long term (current) drug therapy; Z86.73 Personal history of transient ischemic attack (TIA), and cerebral infarction without residual deficits
CPT/HCPCS: 80048; 85025; 85027; 93306

== ENCOUNTER 2020-08-02 10:32 | Emergency (ER) | payer MEDICARE ==
[2020-08-02 10:37] VITALS: RESP 18; TEMP 97.6
--- NOTE | 2020-08-02 11:23 | CT ---
EXAMINATION TYPE: CT brain cspine wo con DATE OF EXAM: 08/02/2020 COMPARISON: CT brain November 05, 2019. CT cervical spine January 07, 2020. HISTORY: struck his head on a kitchen cabinet with headache and neck pain. CT DLP: 1302.5 mGycm. Automated Exposure Control for Dose Reduction was Utilized. TECHNIQUE: CT scan of the head and cervical spine are performed without contrast. FINDINGS: There is no acute intracranial hemorrhage or midline shift identified. Mild to moderate v entricular and sulcal prominence. Moderate to severe low-attenuation in the deep and periventricular white matter is redemonstrated. The calvarium is intact. Scleral calcification bilateral globes rede monstrated. Paranasal sinuses are grossly clear. Cervical spine is visualized in its entirety from C1 through upper thoracic levels and demonstrates s atisfactory alignment without evidence of acute fracture or dislocation. Prevertebral soft tissue ap pears within normal limits. The C1-C2 articulation is within normal limits on the coronal images. V ertebral body heights are maintained. Persistent eokghfwi-pk-mvyuum disc space narrowing C5-C6 and C6 -C7 levels. Persistent moderate disc space narrowing C3-C4 level. Spinal canal preserved. Axial image s demonstrate multilevel uncovertebral facet degenerative changes contributing to bilateral multileve l neural foraminal narrowing. Lung apices show no pneumothorax bilaterally. IMPRESSION: 1. There is no acute fracture or dislocation evident in the cervical spine. 2. No acute intracranial hemorrhage or midline shift is seen. No significant change from prior studies.
--- NOTE | 2020-08-02 11:39 | ED ---
General Adult HPI - General Chief complaint: Fall Stated complaint: fall, head injury Time Seen by Provider: 08/02/20 10:38 Source: patient Mode of arrival: ambulatory Limitations: no limitations - History of Present Illness Initial comments: 89-year-old male on Plavix for TIA presents to the emergency room for a chief complaint of head injury. Patient reports that he was crouching down to grab syrup from under his cupboard when he fell backwards and hit his head on the cabinet. No loss of consciousness although patient [facility] according to the daughter. They decided to bring him into the emergency room given he is on blood thinners. Patient denies any complaints at this time. Denies headache. Daughter states patient is at baseline. He is alert and oriented 4. Patient has no other complaints at this time including shortness of breath, chest pain, abdominal pain, nausea or vomiting, headache, or visual changes. - Related Data Home Medications Medication Instructions Recorded Confirmed Lansoprazole [Prevacid] 30 mg PO AC-BRKFST 03/03/14 05/07/20 Multivitamin [Men's Multi-Vitamin] 1 tab PO AC-BRKFST 03/05/14 05/07/20 Nitroglycerin Sl Tabs [Nitrostat] 0.4 mg SL Q5M PRN 11/05/19 05/07/20 Ascorbic Acid [Vitamin C] 500 mg PO DAILY 05/06/20 05/07/20 Cholecalciferol (Vitamin D3) 125 mcg PO DAILY 05/06/20 05/07/20 [Vitamin D3 (5000 Iu)] Clopidogrel [Plavix] 75 mg PO QAM 05/06/20 05/07/20 Naproxen Sodium [Aleve] 220 mg PO BID 05/06/20 05/07/20 Spironolactone 25 mg PO DAILY 05/06/20 05/07/20 Previous Rx's Medication Instructions Recorded Aspirin 81 mg PO DAILY #30 chew 11/07/19 Atorvastatin [Lipitor] 80 mg PO HS #30 tab 11/07/19 Allergies Allergy/AdvReac Type Severity Reaction Status Date / Time meperidine HCl [From Demerol] Allergy Severe Nausea Verified 08/02/20 10:37 neomycin [Neomycin] Allergy Rash/Hives Verified 08/02/20 10:37 amoxicillin [Amoxicillin] AdvReac Severe Nausea Verified 08/02/20 10:37 ,ABDOMINAL PAIN clarithromycin [From Biaxin] AdvReac Severe Nausea Verified 08/02/20 10:37 Review of Systems ROS Statement: Those systems with pertinent positive or pertinent negative responses have been documented in the HPI. ROS Other: All systems not noted in ROS Statement are negative. Past Medical History Past Medical History: Coronary Artery Disease (CAD), Chest Pain / Angina, CVA/TIA, GERD/Reflux, Hyperlipidemia, Hypertension, Myocardial Infarction ([place]), Pneumonia Additional Past Medical History / Comment(s): hx. 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 TIA 05/2019, and 10/2019 See cardiology [facility] Last Myocardial Infarction Date:: 10/04/19 History of Any Multi-Drug Resistant Organisms: None Reported Past Surgical History: Coronary Bypass/CABG, Heart Catheterization, Hernia Repair, Pacemaker Additional Past Surgical History / Comment(s): CABG-triple bypass 30 yrs. ago. varicose vein stripping many years ago. heart cath (11/04/19) Past Anesthesia/Blood Transfusion Reactions: No Reported Reaction Type of Cardiac Device: Permanent Pacemaker Device Placement Date:: 2014 Past Psychological History: No Psychological Hx Reported Smoking Status: Never smoker Past Alcohol Use History: None Reported Past Drug Use History: None Reported - Past Family History Father Family Medical History: Myocardial Infarction ([place]) Additional Family Medical History / Comment(s): age 61 Mother Family Medical History: CVA/TIA Additional Family Medical History / Comment(s): at age 86 General Exam Limitations: no limitations General appearance: alert, in no apparent distress Head exam: Present: atraumatic, normocephalic, normal inspection Eye exam: Present: normal appearance, PERRL, EOMI. Absent: scleral icterus, conjunctival injection, periorbital swelling ENT exam: Present: normal exam, mucous membranes moist Neck exam: Present: normal inspection, full ROM. Absent: tenderness, meningismus, lymphadenopathy Respiratory exam: Present: normal lung sounds bilaterally. Absent: respiratory distress, wheezes, rales, rhonchi, stridor Cardiovascular Exam: Present: regular rate, normal rhythm, normal heart sounds. Absent: systolic murmur, diastolic murmur, rubs, gallop, clicks GI/Abdominal exam: Present: soft, normal bowel sounds. Absent: distended, tenderness, guarding, rebound, rigid Neurological exam: Present: alert, oriented X3, normal gait, other (GCS 15) Course Vital Signs 08/02/20 10:32 Temperature 97.6 F Pulse Rate 59 L Respiratory 18 Rate Blood Pressure 136/62 O2 Sat by Pulse 94 L Oximetry Medical Decision Making - Medical Decision Making Vitals are stable. Patient is well-appearing. CT brain shows no acute cranial hemorrhage or midline shift. CT cervical spine shows no acute fracture or dislocation evident in the cervical spine. At this time patient be sent to follow up with primary care. He will return here for any worsening symptoms. Patient has an appointment with his primary care doctor in 2 hours. Disposition Clinical Impression: Head injury Disposition: HOME SELF-CARE Condition: Good Instructions (If sedation given, give patient instructions): Head Injury (ED) Additional Instructions: Please follow up with primary care in 1-2 days. Return to the emergency room for any worsening symptoms per Is patient prescribed a controlled substance at d/c from ED?: No Referrals: Misael Foster DO [Primary Care Provider] - 1-2 days Time of Disposition: 11:37
[2020-08-02 11:45] VITALS: BP 122/66; PULSE 75
== END 2020-08-02 11:49 | disposition home or self-care (01) ==
LOC: EC 10:32
DX: S09.90XA Unspecified injury of head, initial encounter (principal); I25.10 Atherosclerotic heart disease of native coronary artery without angina pectoris; K21.9 Gastro-esophageal reflux disease without esophagitis; E78.5 Hyperlipidemia, unspecified; I10 Essential (primary) hypertension; I25.2 Old myocardial infarction; Z86.73 Personal history of transient ischemic attack (TIA), and cerebral infarction without residual deficits; W18.30XA Fall on same level, unspecified, initial encounter
CPT/HCPCS: 70450; 72125; 99283